=== PATIENT | female | born 1970 | race Caucasian/White ===

== ENCOUNTER 2020-08-04 16:24 | Inpatient (IN) | payer MEDICAID ==
[~2020-08-04] VITALS: Ht 170.2 cm; Wt 100.0 kg
[2020-08-04] MEDS ORDERED: TETanus/Pertussis (Acell)/Diphther VAC/PF (Tdap-Adult) 0.5ml syringe IMVAC ONE (18:55)
[2020-08-04] MEDS ORDERED: piperacillin/tazo 3.375gm/50ml 50 ML IV ONE (18:55)
[2020-08-04] MEDS ORDERED: normal saline 1000ML IV soln IV ONE (18:55)
[2020-08-04] MEDS ORDERED: vancomycin/NS 1 GM ADD-VANTAGE 250 ML IV ONE (18:55)
[2020-08-04] MEDS ORDERED: CLINDAmcin 900mg/NS 50ml IVPB 50 ML IV ONE (18:55)
[2020-08-04] MEDS ORDERED: iohexol 300mg/ml 100ml inj. ONE (19:46)
[2020-08-04 20:07] LABS: BASOPHILS % (AUTO) 0.3 % (0-1); EOSINOPHILS # (AUTO) 0.1 X10'3 (0-0.9); EOSINOPHILS % (AUTO) 1.2 % (0-6); HEMATOCRIT 38.2 % (35.0-45.0); HEMOGLOBIN 12.8 g/dl (12.0-16.0); LYMPHOCYTES # (AUTO) 2.1 X10'3 (1.1-4.8); LYMPHOCYTES % (AUTO) 16.5 % (21-51); MEAN CORPUSCULAR HGB CONC 33.6 g/dL (33.0-36.5); MEAN CORPUSCULAR VOLUME 89.3 FL (78-98); MEAN PLATELET VOLUME 7.9 FL (7.4-10.4); MONOCYTES # (AUTO) 0.8 X10'3 (0-0.9); MONOCYTES % (AUTO) 6.5 % (2-12); NEUTROPHILS # (AUTO) 9.5 X10'3 (1.8-7.7); NEUTROPHILS % (AUTO) 75.5 % (42-75); PLATELET COUNT 361 X10'3 (140-440); RED BLOOD COUNT 4.28 X10'6 (4.20-5.60); RED CELL DISTRIBUTION WIDTH 13.7 % (11.5-14.5); WHITE BLOOD COUNT 12.6 X10'3 (4.5-11.0)
[2020-08-04 20:22] LABS: ALANINE AMINOTRANSFERASE 23 U/L (12-78); ALBUMIN 3.1 G/DL (3.4-5.0); ALBUMIN/GLOBULIN RATIO 0.6 (1.1-1.5); ALKALINE PHOSPHATASE 134 IU/L (46-116); ANION GAP 7 (8-16); ASPARTATE AMINO TRANSFERASE 17 U/L (10-37); BILIRUBIN,TOTAL 0.6 MG/DL (0.1-1.0); BLOOD UREA NITROGEN 14 MG/DL (7-18); BUN/CREATININE RATIO 15.9 (6.6-38.0); CHLORIDE 101 MMOL/L (99-107); CREATININE 0.88 MG/DL (0.40-0.90); GLUCOSE 86 MG/DL (70-104); POTASSIUM 3.8 MMOL/L (3.5-5.1); SODIUM 139 MMOL/L (135-145); TOTAL CARBON DIOXIDE 30.8 MMOL/L (24-32); TOTAL PROTEIN 8.2 G/DL (6.4-8.2); eGFR 68 ML/MIN
[2020-08-04 21:05] LABS: CLARITY,URINE CLEAR (Clear); COLOR,URINE YELLOW (Yellow); GLUCOSE, URINE NEGATIVE (Neg); KETONES,URINE NEGATIVE (Neg); LEUKOCYTE ESTERASE ,URINE NEGATIVE (Neg); NITRITES, URINE NEGATIVE (Neg); OCCULT BLOOD,URINE MODERATE (Neg); PROTEIN,URINE TRACE mg/dl (Neg); UROBILINOGEN,URINE 0.2 E.U/dL (0.2-1.0)
[2020-08-04 21:07] LABS: UA COLLECTION TYPE CLN CATCH MIDSTREAM
[2020-08-04 21:24] LABS: BACTERIA,URINE 1+ /HPF (Neg); WBC,URINE 0-4 /HPF (0-4)
[2020-08-04 21:25] LABS: SQUAMOUS EPITHELIAL CELL,UR MODERATE /LPF (FEW)
[2020-08-04] MEDS ORDERED: NO HOME MEDS (21:58)
[2020-08-04] MEDS ORDERED: magnesium 2GM in 50ml NS 50 ML IV PRN (22:40)
[2020-08-04] MEDS ORDERED: mag hydrox/Alum hydrox/simeth 30ml oral suspension PO PRN (22:40)
[2020-08-04] MEDS ORDERED: HYDROcodone/acetaminophen 5mg/325mg tablet PO PRN (22:40)
[2020-08-04] MEDS ORDERED: magnesium 4gm in 100ml NS 100 ML IV PRN (22:40)
[2020-08-04] MEDS ORDERED: ondansetron/PF 4mg/2ml inj IV PRN (22:40)
[2020-08-04] MEDS ORDERED: potassium Cl 20 mEq SR tablet PO PRN ×2 (22:40)
[2020-08-04] MEDS ORDERED: potassium CL 10mEq/100ml bag 100 ML IV PRN ×2 (22:40)
[2020-08-04] MEDS ORDERED: acetaminophen 325mg tablet PO PRN ×2 (22:40)
[2020-08-04] MEDS: normal saline 1000ml 1,000 ML IV SCH (23:28)
[2020-08-05] MEDS: piperacillin/tazo 3.375gm/50ml 100 ML IV SCH ×3 (00:09→17:16)
[2020-08-05] MEDS: hydrALAZINE 20mg/ml inj. IV PRN (00:14)
[2020-08-05] MEDS: HYDROcodone/acetaminophen 10/325mg tab PO PRN ×6 (01:21→23:01)
--- NOTE | 2020-08-05 05:32 | NUR ---
Pt given juice at her request. She woke up because the pain in her leg was returning and requesting prn norco.
[2020-08-05] MEDS: K and/or MAG REPLACEMENT MC SCH ×2 (08:00→19:48)
[2020-08-05] MEDS: mineral oil/petrolatum, white cream 113gm jar TP SCH (08:00)
[2020-08-05] MEDS: vancomycin/NS 1 GM ADD-VANTAGE 250 ML IV SCH ×2 (08:09→19:51)
[2020-08-05] MEDS: normal saline 1000ml 1,000 ML IV SCH ×2 (08:40→14:10)
[2020-08-05 09:00] VITALS: BP 150/55
[2020-08-05 09:00] LABS: BASOPHILS % (AUTO) 0.5 % (0-1); EOSINOPHILS # (AUTO) 0.1 X10'3 (0-0.9); EOSINOPHILS % (AUTO) 1.5 % (0-6); HEMOGLOBIN 11.9 g/dl (12.0-16.0); MEAN CORPUSCULAR HEMOGLOBIN 30.5 PG (27.0-31.0); MEAN CORPUSCULAR VOLUME 89.7 FL (78-98); MEAN PLATELET VOLUME 7.9 FL (7.4-10.4); MONOCYTES # (AUTO) 0.9 X10'3 (0-0.9); MONOCYTES % (AUTO) 9.5 % (2-12); NEUTROPHILS # (AUTO) 6.6 X10'3 (1.8-7.7); NEUTROPHILS % (AUTO) 67.5 % (42-75); PLATELET COUNT 346 X10'3 (140-440); RED CELL DISTRIBUTION WIDTH 14.1 % (11.5-14.5); WHITE BLOOD COUNT 9.7 X10'3 (4.5-11.0)
[2020-08-05 09:17] LABS: ALANINE AMINOTRANSFERASE 23 U/L (12-78); ALBUMIN 2.7 G/DL (3.4-5.0); ALBUMIN/GLOBULIN RATIO 0.6 (1.1-1.5); ALKALINE PHOSPHATASE 125 IU/L (46-116); ANION GAP 6 (8-16); ASPARTATE AMINO TRANSFERASE 23 U/L (10-37); BILIRUBIN,TOTAL 0.5 MG/DL (0.1-1.0); BLOOD UREA NITROGEN 10 MG/DL (7-18); BUN/CREATININE RATIO 12.3 (6.6-38.0); CALCIUM 8.4 MG/DL (8.5-10.1); CHLORIDE 104 MMOL/L (99-107); CREATININE 0.81 MG/DL (0.40-0.90); GLUCOSE 117 MG/DL (70-104); MAGNESIUM 2.2 MG/DL (1.5-2.4); SODIUM 140 MMOL/L (135-145); TOTAL PROTEIN 7.4 G/DL (6.4-8.2); eGFR 75 ML/MIN
[2020-08-05 09:22] LABS: POTASSIUM 4.4 MMOL/L (3.5-5.1)
[2020-08-05] MEDS: lisinopril 10 MG tablet PO SCH (10:50)
[2020-08-05 18:00] VITALS: BP 123/72
--- NOTE | 2020-08-05 18:21 | NUR ---
Problems reprioritized. Patient report given, questions answered & plan of care reviewed with Emma Renner
[2020-08-05] MEDS: lactobacillus rhamnosus 10,000 MMU CELLS/CAPSULE PO SCH (19:51)
[2020-08-05] MEDS: enoxaparin 40mg/0.4ml syringe SQ SCH (19:52)
[2020-08-05 22:00] VITALS: BP 149/89
[2020-08-05] MEDS: diphenhydrAMINE 50 mg/ml inj IV PRN (22:36)
[2020-08-06] MEDS: piperacillin/tazo 3.375gm/50ml 100 ML IV SCH ×3 (00:12→16:49)
[2020-08-06] MEDS: normal saline 1000ml 1,000 ML IV SCH ×3 (00:19→23:17)
[2020-08-06] MEDS: hydrALAZINE 20mg/ml inj. IV PRN ×2 (05:09→18:17)
[2020-08-06] MEDS: HYDROcodone/acetaminophen 10/325mg tab PO PRN ×4 (05:14→21:45)
[2020-08-06 06:00] VITALS: BP 155/103
--- NOTE | 2020-08-06 06:25 | NUR ---
Patient in room ORTHO 4010. I have received report from Shi and had the opportunity to ask questions and assume patient care.
--- NOTE | 2020-08-06 06:39 | NUR ---
Problems reprioritized. Patient report given, questions answered & plan of care reviewed with JOSE Tian.
[2020-08-06] MEDS ORDERED: VANCOMYCIN LEVEL IV ONE (07:30)
[2020-08-06 07:49] LABS: BASOPHILS % (AUTO) 0.6 % (0-1); EOSINOPHILS # (AUTO) 0.1 X10'3 (0-0.9); EOSINOPHILS % (AUTO) 1.2 % (0-6); HEMATOCRIT 33.9 % (35.0-45.0); HEMOGLOBIN 11.5 g/dl (12.0-16.0); LYMPHOCYTES # (AUTO) 2.2 X10'3 (1.1-4.8); LYMPHOCYTES % (AUTO) 25.4 % (21-51); MEAN CORPUSCULAR HEMOGLOBIN 30.7 PG (27.0-31.0); MEAN CORPUSCULAR HGB CONC 33.8 g/dL (33.0-36.5); MEAN CORPUSCULAR VOLUME 90.9 FL (78-98); MEAN PLATELET VOLUME 7.8 FL (7.4-10.4); MONOCYTES # (AUTO) 0.7 X10'3 (0-0.9); MONOCYTES % (AUTO) 7.9 % (2-12); NEUTROPHILS # (AUTO) 5.6 X10'3 (1.8-7.7); NEUTROPHILS % (AUTO) 64.9 % (42-75); PLATELET COUNT 358 X10'3 (140-440); RED BLOOD COUNT 3.73 X10'6 (4.20-5.60); RED CELL DISTRIBUTION WIDTH 13.9 % (11.5-14.5); WHITE BLOOD COUNT 8.7 X10'3 (4.5-11.0)
[2020-08-06] MEDS: K and/or MAG REPLACEMENT MC SCH ×2 (08:00→19:33)
[2020-08-06 08:03] LABS: ALANINE AMINOTRANSFERASE 27 U/L (12-78); ALBUMIN 2.5 G/DL (3.4-5.0); ALBUMIN/GLOBULIN RATIO 0.5 (1.1-1.5); ALKALINE PHOSPHATASE 147 IU/L (46-116); ANION GAP 9 (8-16); ASPARTATE AMINO TRANSFERASE 22 U/L (10-37); BILIRUBIN,TOTAL 0.4 MG/DL (0.1-1.0); BLOOD UREA NITROGEN 12 MG/DL (7-18); BUN/CREATININE RATIO 14.3 (6.6-38.0); CALCIUM 8.1 MG/DL (8.5-10.1); CHLORIDE 107 MMOL/L (99-107); CREATININE 0.84 MG/DL (0.40-0.90); GLUCOSE 96 MG/DL (70-104); MAGNESIUM 2.2 MG/DL (1.5-2.4); POTASSIUM 4.1 MMOL/L (3.5-5.1); SODIUM 140 MMOL/L (135-145); TOTAL CARBON DIOXIDE 24.5 MMOL/L (24-32); TOTAL PROTEIN 7.3 G/DL (6.4-8.2); VANCOMYCIN,TROUGH 10.5 UG/ML (6.0-14.0); eGFR 71 ML/MIN
[2020-08-06] MEDS: lactobacillus rhamnosus 10,000 MMU CELLS/CAPSULE PO SCH ×2 (09:26→19:20)
[2020-08-06] MEDS: lisinopril 10 MG tablet PO SCH (09:30)
[2020-08-06] MEDS: vancomycin/NS 1 GM ADD-VANTAGE 250 ML IV SCH (09:31)
[2020-08-06 10:00] VITALS: BP 156/93
[2020-08-06] MEDS: mineral oil/petrolatum, white cream 113gm jar TP SCH (11:24)
[2020-08-06 18:00] VITALS: BP 182/107
--- NOTE | 2020-08-06 18:21 | NUR ---
Problems reprioritized. Patient report given, questions answered & plan of care reviewed with Emma Renner
[2020-08-06] MEDS: enoxaparin 40mg/0.4ml syringe SQ SCH (19:20)
[2020-08-06] MEDS: VANCOmycin 1250MG/NS 250ml Bag 250 ML IV SCH (19:20)
[2020-08-06] MEDS: magnesium hydroxide 30ml (MOM) UD suspension PO PRN (19:32)
[2020-08-06] MEDS ORDERED: pneumococcal 23-VAL P-sac vacc 25 mcg/0.5ml vial IMVAC ONE (20:15)
[2020-08-06] MEDS ORDERED: FLU VACC QS2020-21(6MOS UP)/PF 60 MCG/0.5 ML SYRINGE IMVAC ONE (20:15)
[2020-08-06] MEDS ORDERED: amLODIPine 5mg tablet PO SCH (21:35)
--- NOTE | 2020-08-06 21:58 | NUR ---
PAGER ID: [phone] MESSAGE: adri on neuro [id number], re: 4010A BP 177/102 after 10mg of hydralazine 2 hours ago. It is ordered for Q6 PRN. please advise. New order for Amlodipine 10mg
[2020-08-06 22:00] VITALS: BP 177/102
[2020-08-06] MEDS ORDERED: cloNIDine 0.1 mg tablet PO ONE (22:55)
--- NOTE | 2020-08-06 22:59 | NUR ---
PAGER ID: [phone] MESSAGE: adri neuro [phone] BP still elevated after Amlodipine. R arm 197/103, L arm 180/79 Hydalazine was given at 1817, Norvasc given at 2145 any advice? 1 time dose of clonidine ordered.
[2020-08-06 23:00] VITALS: BP 197/103
[2020-08-06 23:01] VITALS: BP 180/79
[2020-08-07] MEDS: piperacillin/tazo 3.375gm/50ml 100 ML IV SCH ×3 (00:02→16:34)
[2020-08-07] MEDS: HYDROcodone/acetaminophen 10/325mg tab PO PRN ×4 (02:45→19:26)
[2020-08-07 06:00] VITALS: BP 135/87
[2020-08-07 06:34] LABS: ALANINE AMINOTRANSFERASE 19 U/L (12-78); ALBUMIN 2.2 G/DL (3.4-5.0); ALBUMIN/GLOBULIN RATIO 0.5 (1.1-1.5); ALKALINE PHOSPHATASE 121 IU/L (46-116); ANION GAP 6 (8-16); ASPARTATE AMINO TRANSFERASE 14 U/L (10-37); BASOPHILS # (AUTO) 0.1 X10'3 (0-0.2); BASOPHILS % (AUTO) 0.9 % (0-1); BILIRUBIN,TOTAL 0.3 MG/DL (0.1-1.0); BLOOD UREA NITROGEN 10 MG/DL (7-18); BUN/CREATININE RATIO 12.2 (6.6-38.0); CALCIUM 8.4 MG/DL (8.5-10.1); CHLORIDE 109 MMOL/L (99-107); CREATININE 0.82 MG/DL (0.40-0.90); EOSINOPHILS # (AUTO) 0.1 X10'3 (0-0.9); EOSINOPHILS % (AUTO) 1.5 % (0-6); GLUCOSE 122 MG/DL (70-104); HEMATOCRIT 31.6 % (35.0-45.0); HEMOGLOBIN 10.5 g/dl (12.0-16.0); LYMPHOCYTES % (AUTO) 27.6 % (21-51); MAGNESIUM 2.5 MG/DL (1.5-2.4); MEAN CORPUSCULAR HEMOGLOBIN 30.1 PG (27.0-31.0); MEAN CORPUSCULAR HGB CONC 33.2 g/dL (33.0-36.5); MEAN CORPUSCULAR VOLUME 90.5 FL (78-98); MEAN PLATELET VOLUME 7.7 FL (7.4-10.4); MONOCYTES # (AUTO) 0.6 X10'3 (0-0.9); MONOCYTES % (AUTO) 8.8 % (2-12); NEUTROPHILS # (AUTO) 4.4 X10'3 (1.8-7.7); NEUTROPHILS % (AUTO) 61.2 % (42-75); PLATELET COUNT 345 X10'3 (140-440); RED BLOOD COUNT 3.49 X10'6 (4.20-5.60); RED CELL DISTRIBUTION WIDTH 13.8 % (11.5-14.5); SODIUM 142 MMOL/L (135-145); TOTAL CARBON DIOXIDE 26.8 MMOL/L (24-32); TOTAL PROTEIN 6.7 G/DL (6.4-8.2); WHITE BLOOD COUNT 7.1 X10'3 (4.5-11.0); eGFR 73 ML/MIN
--- NOTE | 2020-08-07 06:54 | NUR ---
Problems reprioritized. Patient report given, questions answered & plan of care reviewed with JOSE Mansfield.
--- NOTE | 2020-08-07 06:55 | NUR ---
Patient in room ORTHO 4010. I have received report from Emma Archibald RN and had the opportunity to ask questions and assume patient care.
[2020-08-07] MEDS: K and/or MAG REPLACEMENT MC SCH ×2 (08:00→20:00)
[2020-08-07] MEDS: lactobacillus rhamnosus 10,000 MMU CELLS/CAPSULE PO SCH ×2 (08:30→20:00)
[2020-08-07] MEDS: lisinopril 10 MG tablet PO SCH (08:30)
[2020-08-07] MEDS: VANCOmycin 1250MG/NS 250ml Bag 250 ML IV SCH ×2 (08:31→20:00)
[2020-08-07] MEDS: normal saline 1000ml 1,000 ML IV SCH ×2 (08:37→19:34)
[2020-08-07] MEDS: mineral oil/petrolatum, white cream 113gm jar TP SCH (08:39)
[2020-08-07 11:00] VITALS: BP 154/85
[2020-08-07] MEDS: magnesium hydroxide 30ml (MOM) UD suspension PO PRN (12:37)
[2020-08-07 18:00] VITALS: BP 161/78
--- NOTE | 2020-08-07 18:00 | NUR ---
Patient in room ORTHO 4010. I have received report from Shyla GARCIA and had the opportunity to ask questions and assume patient care.
--- NOTE | 2020-08-07 18:20 | NUR ---
Problems reprioritized. Patient report given, questions answered & plan of care reviewed with JOSE Sharpe.
[2020-08-07] MEDS: diphenhydrAMINE 50 mg/ml inj IV PRN (19:34)
[2020-08-07] MEDS: enoxaparin 40mg/0.4ml syringe SQ SCH (20:00)
[2020-08-07 22:00] VITALS: BP 168/80
[2020-08-08] MEDS: piperacillin/tazo 3.375gm/50ml 100 ML IV SCH ×2 (00:40→07:16)
[2020-08-08] MEDS: HYDROcodone/acetaminophen 10/325mg tab PO PRN ×4 (00:40→20:35)
[2020-08-08 06:00] VITALS: BP 228/122
--- NOTE | 2020-08-08 06:00 | NUR ---
Patient in room ORTHO 4010. I have received report from Jennifer and had the opportunity to ask questions and assume patient care.
--- NOTE | 2020-08-08 06:33 | NUR ---
Problems reprioritized. Patient report given, questions answered & plan of care reviewed with Jennifer GARCIA.
[2020-08-08] MEDS: normal saline 1000ml 1,000 ML IV SCH (07:16)
[2020-08-08] MEDS: lactobacillus rhamnosus 10,000 MMU CELLS/CAPSULE PO SCH ×2 (07:16→20:30)
[2020-08-08] MEDS: lisinopril 10 MG tablet PO SCH (07:17)
[2020-08-08] MEDS: hydrALAZINE 20mg/ml inj. IV PRN (07:19)
[2020-08-08] MEDS ORDERED: VANCOMYCIN LEVEL IV ONE (07:30)
[2020-08-08 07:49] LABS: HEMOGLOBIN 10.5 g/dl (12.0-16.0)
[2020-08-08 07:51] LABS: BASOPHILS % (AUTO) 0.4 % (0-1); EOSINOPHILS # (AUTO) 0.1 X10'3 (0-0.9); EOSINOPHILS % (AUTO) 1.1 % (0-6); HEMATOCRIT 30.3 % (35.0-45.0); LYMPHOCYTES # (AUTO) 1.9 X10'3 (1.1-4.8); MEAN CORPUSCULAR HEMOGLOBIN 31.4 PG (27.0-31.0); MEAN CORPUSCULAR HGB CONC 34.7 g/dL (33.0-36.5); MEAN CORPUSCULAR VOLUME 90.4 FL (78-98); MEAN PLATELET VOLUME 7.7 FL (7.4-10.4); MONOCYTES # (AUTO) 0.6 X10'3 (0-0.9); NEUTROPHILS # (AUTO) 5.8 X10'3 (1.8-7.7); NEUTROPHILS % (AUTO) 68.5 % (42-75); PLATELET COUNT 335 X10'3 (140-440); RED BLOOD COUNT 3.35 X10'6 (4.20-5.60); RED CELL DISTRIBUTION WIDTH 13.5 % (11.5-14.5); WHITE BLOOD COUNT 8.4 X10'3 (4.5-11.0)
[2020-08-08 07:52] LABS: ALANINE AMINOTRANSFERASE 19 U/L (12-78); ALBUMIN 2.3 G/DL (3.4-5.0); ALBUMIN/GLOBULIN RATIO 0.5 (1.1-1.5); ALKALINE PHOSPHATASE 119 IU/L (46-116); ANION GAP 8 (8-16); ASPARTATE AMINO TRANSFERASE 15 U/L (10-37); BILIRUBIN,TOTAL 0.4 MG/DL (0.1-1.0); BLOOD UREA NITROGEN 8 MG/DL (7-18); CHLORIDE 109 MMOL/L (99-107); GLUCOSE 97 MG/DL (70-104); SODIUM 143 MMOL/L (135-145); TOTAL CARBON DIOXIDE 26.1 MMOL/L (24-32); TOTAL PROTEIN 6.9 G/DL (6.4-8.2); eGFR 76 ML/MIN
[2020-08-08 07:54] LABS: MAGNESIUM 2.3 MG/DL (1.5-2.4); VANCOMYCIN,TROUGH 16.4 UG/ML (6.0-14.0)
[2020-08-08 08:00] VITALS: BP 175/90
[2020-08-08] MEDS: K and/or MAG REPLACEMENT MC SCH ×2 (08:00→20:00)
[2020-08-08] MEDS: cloNIDine 0.1 mg tablet PO SCH ×3 (08:28→20:35)
[2020-08-08] MEDS: mineral oil/petrolatum, white cream 113gm jar TP SCH (08:28)
[2020-08-08 09:19] VITALS: BP 165/79
[2020-08-08 10:00] VITALS: BP 124/70
[2020-08-08] MEDS: VANCOmycin 1250MG/NS 250ml Bag 250 ML IV SCH (10:06)
--- NOTE | 2020-08-08 12:07 | NUR ---
Problems reprioritized. Patient report given, questions answered & plan of care reviewed with Jennifer.
--- NOTE | 2020-08-08 12:10 | NUR ---
Student documentation:I have reviewed and agree with all interventions, assessments performed and documented by Danae Liao.
[2020-08-08] MEDS: ceFAZolin 1GM/D5W- ADD-VANTAGE 50 ML IV SCH ×2 (14:09→20:30)
--- NOTE | 2020-08-08 18:23 | NUR ---
Problems reprioritized. Patient report given, questions answered & plan of care reviewed with JOSE Carter.
[2020-08-08] MEDS: enoxaparin 40mg/0.4ml syringe SQ SCH (20:31)
[2020-08-09] MEDS: HYDROcodone/acetaminophen 10/325mg tab PO PRN ×3 (01:58→13:29)
[2020-08-09] MEDS: diphenhydrAMINE 50 mg/ml inj IV PRN (01:58)
[2020-08-09] MEDS: ceFAZolin 1GM/D5W- ADD-VANTAGE 50 ML IV SCH ×3 (02:03→15:51)
[2020-08-09 06:00] VITALS: BP 147/81
--- NOTE | 2020-08-09 06:28 | NUR ---
Patient in room ORTHO 4010. I have received report from Alison and had the opportunity to ask questions and assume patient care.
[2020-08-09 06:43] LABS: BASOPHILS # (AUTO) 0.1 X10'3 (0-0.2); EOSINOPHILS # (AUTO) 0.1 X10'3 (0-0.9); EOSINOPHILS % (AUTO) 1.6 % (0-6); HEMATOCRIT 30.3 % (35.0-45.0); HEMOGLOBIN 10.2 g/dl (12.0-16.0); LYMPHOCYTES # (AUTO) 2.4 X10'3 (1.1-4.8); LYMPHOCYTES % (AUTO) 32.1 % (21-51); MEAN CORPUSCULAR HEMOGLOBIN 30.3 PG (27.0-31.0); MEAN CORPUSCULAR HGB CONC 33.6 g/dL (33.0-36.5); MEAN CORPUSCULAR VOLUME 90.2 FL (78-98); MEAN PLATELET VOLUME 7.5 FL (7.4-10.4); MONOCYTES # (AUTO) 0.6 X10'3 (0-0.9); MONOCYTES % (AUTO) 7.9 % (2-12); NEUTROPHILS # (AUTO) 4.2 X10'3 (1.8-7.7); NEUTROPHILS % (AUTO) 57.4 % (42-75); PLATELET COUNT 316 X10'3 (140-440); RED BLOOD COUNT 3.36 X10'6 (4.20-5.60); RED CELL DISTRIBUTION WIDTH 13.9 % (11.5-14.5); WHITE BLOOD COUNT 7.4 X10'3 (4.5-11.0)
[2020-08-09 06:59] LABS: ALANINE AMINOTRANSFERASE 17 U/L (12-78); ALBUMIN 2.3 G/DL (3.4-5.0); ALBUMIN/GLOBULIN RATIO 0.5 (1.1-1.5); ALKALINE PHOSPHATASE 105 IU/L (46-116); ANION GAP 10 (8-16); ASPARTATE AMINO TRANSFERASE 13 U/L (10-37); BILIRUBIN,TOTAL 0.3 MG/DL (0.1-1.0); BLOOD UREA NITROGEN 12 MG/DL (7-18); BUN/CREATININE RATIO 12.4 (6.6-38.0); CALCIUM 8.5 MG/DL (8.5-10.1); CHLORIDE 110 MMOL/L (99-107); CREATININE 0.97 MG/DL (0.40-0.90); GLUCOSE 111 MG/DL (70-104); MAGNESIUM 2.5 MG/DL (1.5-2.4); POTASSIUM 4.5 MMOL/L (3.5-5.1); SODIUM 145 MMOL/L (135-145); TOTAL CARBON DIOXIDE 25.5 MMOL/L (24-32); TOTAL PROTEIN 6.9 G/DL (6.4-8.2); eGFR 61 ML/MIN
[2020-08-09] MEDS: cloNIDine 0.1 mg tablet PO SCH ×2 (07:48→13:30)
[2020-08-09] MEDS: lactobacillus rhamnosus 10,000 MMU CELLS/CAPSULE PO SCH (07:48)
[2020-08-09] MEDS: lisinopril 10 MG tablet PO SCH (07:54)
[2020-08-09] MEDS: K and/or MAG REPLACEMENT MC SCH (08:00)
[2020-08-09 10:00] VITALS: BP 108/86
--- NOTE | 2020-08-09 15:59 | NUR ---
Initial: Pt admit DX RLE cellulitis w/ blisters hx meth use FLOOR ASSEMBLER. PO 75 avg meals meeting needs. LBM 08/08. RD recommends ensure high protein TIDWM; DO notified. Pending possible debridement per DO note. Will continue to monitor. Rec: 1. continue regular diet 2. ensure high protein TIDWM 3. bowel care per rx 4. wts per rx Addendum: 08/09/20 at [address] Amended: Links added.
[2020-08-09 18:00] VITALS: BP 160/83
--- NOTE | 2020-08-09 21:10 | NUR ---
Entered patient's room to administer HS medications and address possible DSG change to RLE. At this time stated she did not want the nursing resident in her room as she expressed she felt he was not providing her with the care she wanted. I tried to reassure the patient that he did not have to be involved in her care for the remainder of the shift it was at this time the patient stated that she wanted to leave AMA. It was explained to the patient that she would not get her antibiotic therapy and that she would need to follow up with her primary care doctor after she left or if her symptoms got worse she could return to the ER. I informed her that I would need to let the MD on duty of her wishes to leave AMA.
--- NOTE | 2020-08-09 21:20 | NUR ---
Received Call from MD Blackwood about AMA and he stated that if the patient has been advised of her rights the to remove IV and let the patient leave at this time.
--- NOTE | 2020-08-09 21:40 | NUR ---
Removed patient IV from right hand with canula intact. Complete dressing change to RLE as dressing was saturated with drainage. Pt signed AMA paper. Gathered all of patient's belongings including cell phone and media buyer. Pt changed in to her own clothing and had her FWW at time of discharge. Security present to escort patient out.
== END 2020-08-09 21:30 | disposition left against medical advice (07) | DRG 383 ==
LOC: ER 16:25 → ED HOLD 22:36 → ORTHO 4S 08-05 09:50
PROVIDERS: ADMIT Family Medicine; ATTEND Internal Medicine
PROC: 3E02340 Introduction of Influenza Vaccine into Muscle, Percutaneous Approach (ICD-10-PCS; principal; 2020-08-06)
PROC: 3E0234Z Introduction of Serum, Toxoid and Vaccine into Muscle, Percutaneous Approach (ICD-10-PCS; 2020-08-06)
DX: L03.115 Cellulitis of right lower limb (principal); B95.0 Streptococcus, group A, as the cause of diseases classified elsewhere; I10 Essential (primary) hypertension; J45.909 Unspecified asthma, uncomplicated; Z53.29 Procedure and treatment not carried out because of patient's decision for other reasons; F17.210 Nicotine dependence, cigarettes, uncomplicated; L03.116 Cellulitis of left lower limb; Z90.49 Acquired absence of other specified parts of digestive tract; Z88.6 Allergy status to analgesic agent; Z82.49 Family history of ischemic heart disease and other diseases of the circulatory system; Z82.3 Family history of stroke; Z23 Encounter for immunization
CPT/HCPCS: 36415; 71045; 73701; 76937; 80053; 80202; 81001; 83605; 83735; 84145; 85025; 87040; 87070; 87077; 87081; 87186; 90715; 90732; 93005; 93922; 93926; 97116; 97161; 97530; 99285; G0378; J0360; J0690; J1200; J1650; J2543; J3370; J3490; J7030; Q9967

== ENCOUNTER 2023-06-06 20:23 | Inpatient (IN) | payer MEDICAID ==
[~2023-06-06] VITALS: Ht 162.6 cm; Wt 110.5 kg
[~2023-06-06 20:23] MED LIST: AMO250C PO; GABA300C PO; LISI20TA28 PO; LOP12.5T PO
--- NOTE | 2023-06-07 01:39 | NUR ---
Note undone in EDM - 06/07/23 at 0202 by EFREM PT BROUGHT BACK TO ROOM 13 BY MALTER OPERATOR. SLOW STEADY GAIT NOTED. PT ENDORSED RLE SWELLING S/P 08/12 W/EXCERATION OS S/S X3 DAYS. PT ENDORSED INJURY TO RLE S/P WASP BITE. AT BEDSIDE AWARE BP 20/116. ENDORSED SHE TOOK ALL OF HER ROUTINE ANTI HTN MEDS TODAY. PAIN AT PRESENT TIME 07/30 ENDORSES HAS NOT TAKEN HER PAIN MEDICATION X2 DAYS " THE NORCO DOESN'T REALLY WORK"
[2023-06-07] MEDS ORDERED: vancomycin/NS 1 GM ADD-VANTAGE 250 ML IV ONE (01:50)
[2023-06-07] MEDS ORDERED: piperacillin/tazo 3.375gm/50ml 50 ML IV ONE (01:50)
--- NOTE | 2023-06-07 02:02 | NUR ---
PT BROUGHT BACK TO ROOM 13 BY WRAPPER CASHIER. SLOW STEADY GAIT NOTED. PT ENDORSED RLE SWELLING S/P LATE 2021 W/EXCERATION OS S/S X3 DAYS. PT ENDORSED INJURY TO RLE S/P WASP BITE. MD AT BEDSIDE AWARE BP 20/116. ENDORSED SHE TOOK ALL OF HER ROUTINE ANTI HTN MEDS TODAY. PAIN AT PRESENT TIME 07/30 ENDORSES HAS NOT TAKEN HER PAIN MEDICATION X2 DAYS " THE NORCO DOESN'T REALLY WORK"
--- NOTE | 2023-06-07 02:25 | NUR ---
BC X2 DRAWN IV ABX TX STARTED VIA 22G LAC. PCXR IN PROGRESS
[2023-06-07 02:36] LABS: BASOPHILS % (AUTO) 0.5 % (0-1); EOSINOPHILS # (AUTO) 0.2 X10'3 (0-0.9); EOSINOPHILS % (AUTO) 3.6 % (0-6); HEMATOCRIT 40.2 % (35.0-45.0); HEMOGLOBIN 13.5 g/dl (12.0-16.0); LYMPHOCYTES # (AUTO) 2.4 X10'3 (1.1-4.8); LYMPHOCYTES % (AUTO) 40.6 % (21-51); MEAN CORPUSCULAR HEMOGLOBIN 30.9 PG (27.0-31.0); MEAN CORPUSCULAR HGB CONC 33.6 g/dL (33.0-36.5); MEAN CORPUSCULAR VOLUME 91.8 FL (78-98); MEAN PLATELET VOLUME 8.9 FL (7.4-10.4); MONOCYTES # (AUTO) 0.4 X10'3 (0-0.9); MONOCYTES % (AUTO) 6.7 % (2-12); NEUTROPHILS # (AUTO) 2.9 X10'3 (1.8-7.7); NEUTROPHILS % (AUTO) 48.6 % (42-75); PLATELET COUNT 218 X10'3 (140-440); RED BLOOD COUNT 4.37 X10'6 (4.20-5.60); RED CELL DISTRIBUTION WIDTH 14.5 % (11.5-14.5)
[2023-06-07 02:51] LABS: ALANINE AMINOTRANSFERASE 36 U/L (12-78); ALBUMIN 3.7 G/DL (3.4-5.0); ALBUMIN/GLOBULIN RATIO 0.9 (1.1-1.5); ALKALINE PHOSPHATASE 109 IU/L (46-116); ANION GAP 6 (8-16); ASPARTATE AMINO TRANSFERASE 27 U/L (10-37); BILIRUBIN,TOTAL 0.2 MG/DL (0.1-1.0); BLOOD UREA NITROGEN 15 MG/DL (7-18); BUN/CREATININE RATIO 15.3 (10.0-20.0); CALCIUM 9.3 MG/DL (8.5-10.1); CHLORIDE 107 MMOL/L (99-107); CREATININE 0.98 MG/DL (0.40-0.90); GLUCOSE 96 MG/DL (70-104); SODIUM 141 MMOL/L (135-145); TOTAL CARBON DIOXIDE 28.2 MMOL/L (24-32); TOTAL PROTEIN 7.6 G/DL (6.4-8.2); eCRCL 57 ML/MIN; eGFR 59 ML/MIN
[2023-06-07 02:59] LABS: MAGNESIUM 2.3 MG/DL (1.5-2.4); PRO BRAIN NATRIURETIC PEPTIDE 189 PG/ML (0-125)
[2023-06-07] MEDS ORDERED: fentaNYL/PF 50MCG/1 ML 2ML syringe IV ONE (03:05)
[2023-06-07] MEDS ORDERED: LORazepam 2 mg/ml vial IV ONE ×3 (03:05→04:15)
[2023-06-07] MEDS ORDERED: ondansetron/PF 4mg/2ml inj IV ONE (03:05)
[2023-06-07] MEDS ORDERED: iohexol 300mg/ml 100ml inj. ONE (03:22)
--- NOTE | 2023-06-07 04:02 | NUR ---
pt returned from ct via gurney iv vanco started via 20g piv rac.
[2023-06-07] MEDS ORDERED: proCHLORperazine 10 MG/2 ml inj IV ONE (04:10)
--- NOTE | 2023-06-07 04:40 | NUR ---
APPROX 10MIN AFTER INITIATING VANCO INFUSION PT VERBALIZED "i CAN'T BREATH! I'M GOING TO VOMIT" BEGAN TO CRY BECOMING VERY RESTLESS. VANCO STOPPED LUNGS ASSESSED NO CHANGE NOTED FROM INITIAL ASSESSMENT, NOTIFIED RA SATS 94%. O2 APPLIED AT 2 L VIA NC ATIVAN 0.5MG VO TO INCREASE TO TOTAL 1MG IV/COMPAZINE 10MG IV ADMIN. THERAPUETIC COMMUNICATION IMPLEMENTED WITH GOOD RESULTS ALONG WITH MEDICATION. PT RESTING QUIETLY AT PRESENT TIME PROJECT LEAD LEADS ON AND FUNCTIONING.
[2023-06-07] MEDS ORDERED: magnesium 2GM in 50ml NS 50 ML IV PRN (05:35)
[2023-06-07] MEDS ORDERED: magnesium 4gm in 100ml NS 100 ML IV PRN (05:35)
[2023-06-07] MEDS ORDERED: acetaminophen 325mg tablet PO PRN (05:35)
[2023-06-07] MEDS ORDERED: magnesium Cl slow-release 64mg tablet PO PRN (05:35)
[2023-06-07] MEDS ORDERED: mag hydrox/Alum hydrox/simeth 30ml oral suspension PO PRN (05:35)
[2023-06-07] MEDS ORDERED: potassium Cl 20 mEq SR tablet PO PRN ×2 (05:35)
[2023-06-07] MEDS ORDERED: magnesium hydroxide 30ml (MOM) UD suspension PO PRN (05:35)
[2023-06-07] MEDS ORDERED: potassium Cl 40MEQ/1/2NS 520ml 520 ML IV PRN (05:35)
[2023-06-07] MEDS ORDERED: ondansetron/PF 4mg/2ml inj IV PRN (05:35)
[2023-06-07] MEDS ORDERED: HYDROcodone/acetaminophen 5mg/325mg tablet PO PRN (05:35)
[2023-06-07] MEDS: K and/or MAG REPLACEMENT MC SCH ×2 (07:47→19:17)
[2023-06-07] MEDS: docusate sod 100mg capsule PO SCH ×2 (08:26→19:55)
[2023-06-07] MEDS: enoxaparin 40mg/0.4ml syringe SUBCUT SCH (08:28)
[2023-06-07] MEDS ORDERED: METO-411 PO (10:18)
[2023-06-07] MEDS ORDERED: TRAZ-256 PO (10:18)
[2023-06-07] MEDS ORDERED: GABA-535 PO (10:18)
[2023-06-07] MEDS ORDERED: DULO20CA18 PO (10:18)
[2023-06-07] MEDS ORDERED: HYDR-3965 PO (10:18)
[2023-06-07] MEDS: lisinopril 20mg tablet PO SCH (10:36)
[2023-06-07] MEDS: metoprolol tartrate 25mg tablet PO SCH (10:37)
[2023-06-07] MEDS: piperacillin/tazo 3.375gm/50ml 50 ML IV SCH ×2 (10:42→19:08)
--- NOTE | 2023-06-07 12:19 | NUR ---
REPORT GIVENT TO WALI GARCIA ASSUMING CARE DURING LUNCH BREAK
--- NOTE | 2023-06-07 12:57 | NUR ---
RECEIVED REPORT FROM WALI GARCIA ASSUMING CARE OF PT
[2023-06-07] MEDS ORDERED: vancomycin/NS 1 GM ADD-VANTAGE 250 ML IV SCH (14:00)
--- NOTE | 2023-06-07 16:22 | NUR ---
PRESSURE ULCER EDUCATION: DEFINITION: A pressure ulcer is an area of skin that breaks down when you stay in one position too long. The constant pressure against the skin reduces the blood flow to that area and the affected tissue dies. CAUSES: "Being bedridden or in a wheelchair "Fragile skin "Having a chronic condition, such as diabetes or vascular disease "Inability to move certain parts of your body without assistance "Older age "Incontinence of urine or stool SYMPTOMS: "A reddened area that DOES NOT turn white when pressed on - this can be the beginning of a pressure ulcer "A blister, deep sore or a crater - these can be advanced pressure ulcers FIRST AID: "Relieve the pressure on this area "Keep the area clean and dry "Call your primary doctor if you see any of the above symptoms "DO NOT massage the area "DO NOT use a donut shaped or ring shaped pillow- these actually interfere with the blood flow and cause complications PREVENTION: "Check for pressure ulcers everyday "Change position at least every two hours to relieve pressure "Use items that help relieve pressure- pillows, sheepskin, foam padding, and powders. "Keep skin clean and dry "Eat healthy well balanced meals "Exercise daily IF YOU SEE ANY OF THESE SYMPTOMS WHILE IN THE HOSPITAL - TELL YOUR NURSE IMMEDIATELY. IF YOU SEE ANY OF THESE SYMPTOMS WHILE AT HOME OR HAVE ANY QUESTIONS OR CONCERNS ABOUT PRESSURE ULCERS - CALL YOUR PRIMARY DOCTOR IMMEDIATELY. Addendum: 06/07/23 at 1622 by Marysol Kiser RN Amended: Links added.
--- NOTE | 2023-06-07 16:45 | NUR ---
Received report from ED RNEse
[2023-06-07] MEDS: vancomycin/NS 1 GM ADD-VANTAGE 250 ML IV SCH (16:56)
[2023-06-07] MEDS: HYDROcodone/acetaminophen 10/325mg tab PO PRN ×2 (17:29→22:26)
[2023-06-07 17:30] VITALS: RESP 16; O2SAT 98
[2023-06-07 18:00] VITALS: BP 146/69; PULSE 76; RESP 16; TEMP 98.2; O2SAT 96
--- NOTE | 2023-06-07 18:10 | NUR ---
Patient in room ORTHO 4012. I have received report from Shyla GARCIA and had the opportunity to ask questions and assume patient care.
--- NOTE | 2023-06-07 18:30 | NUR ---
Problems reprioritized. Patient report given, questions answered & plan of care reviewed with JOSE Gregg.
[2023-06-07 20:00] VITALS: RESP 16; O2SAT 96
[2023-06-07 22:00] VITALS: BP 146/80; PULSE 69; RESP 16; TEMP 98.4; O2SAT 92
[2023-06-08 01:56] LABS: BILIRUBIN,URINE NEGATIVE (Neg); CLARITY,URINE SLIGHTLY CLOUDY (Clear); COLOR,URINE YELLOW (Yellow); GLUCOSE, URINE NEGATIVE (Neg); KETONES,URINE NEGATIVE (Neg); LEUKOCYTE ESTERASE ,URINE NEGATIVE (Neg); NITRITES, URINE NEGATIVE (Neg); OCCULT BLOOD,URINE TRACE-INTACT (Neg); PH,URINE 7.5 (4.8-8.0); PROTEIN,URINE TRACE mg/dl (Neg); UROBILINOGEN,URINE 0.2 E.U/dL (0.2-1.0)
[2023-06-08 02:12] LABS: UA COLLECTION TYPE CLN CATCH MIDSTREAM
[2023-06-08 02:16] LABS: BACTERIA,URINE FEW /HPF (Neg); RBC,URINE 0-2 /HPF (0-2); SQUAMOUS EPITHELIAL CELL,UR MODERATE /LPF (FEW); WBC,URINE 0-4 /HPF (0-4)
[2023-06-08] MEDS: HYDROcodone/acetaminophen 10/325mg tab PO PRN ×4 (02:39→19:39)
[2023-06-08] MEDS: piperacillin/tazo 3.375gm/50ml 50 ML IV SCH ×3 (02:46→17:46)
[2023-06-08 06:00] VITALS: BP 149/74; PULSE 65; RESP 16; TEMP 97.8; O2SAT 97
[2023-06-08 06:33] LABS: BASOPHILS % (AUTO) 0.4 % (0-1); EOSINOPHILS # (AUTO) 0.2 X10'3 (0-0.9); EOSINOPHILS % (AUTO) 3.6 % (0-6); HEMATOCRIT 36.5 % (35.0-45.0); HEMOGLOBIN 12.2 g/dl (12.0-16.0); LYMPHOCYTES # (AUTO) 1.1 X10'3 (1.1-4.8); LYMPHOCYTES % (AUTO) 19.7 % (21-51); MEAN CORPUSCULAR HEMOGLOBIN 30.9 PG (27.0-31.0); MEAN CORPUSCULAR HGB CONC 33.5 g/dL (33.0-36.5); MEAN CORPUSCULAR VOLUME 92.1 FL (78-98); MEAN PLATELET VOLUME 9.2 FL (7.4-10.4); MONOCYTES # (AUTO) 0.4 X10'3 (0-0.9); MONOCYTES % (AUTO) 6.5 % (2-12); NEUTROPHILS % (AUTO) 69.8 % (42-75); PLATELET COUNT 180 X10'3 (140-440); RED BLOOD COUNT 3.96 X10'6 (4.20-5.60); RED CELL DISTRIBUTION WIDTH 14.4 % (11.5-14.5); WHITE BLOOD COUNT 5.8 X10'3 (4.5-11.0)
[2023-06-08] MEDS: vancomycin/NS 1 GM ADD-VANTAGE 250 ML IV SCH ×2 (06:42→15:46)
[2023-06-08 06:46] LABS: ALANINE AMINOTRANSFERASE 46 U/L (12-78); ALBUMIN 3.2 G/DL (3.4-5.0); ALBUMIN/GLOBULIN RATIO 0.9 (1.1-1.5); ALKALINE PHOSPHATASE 89 IU/L (46-116); ANION GAP 8 (8-16); ASPARTATE AMINO TRANSFERASE 41 U/L (10-37); BILIRUBIN,TOTAL 0.8 MG/DL (0.1-1.0); BLOOD UREA NITROGEN 15 MG/DL (7-18); CALCIUM 8.5 MG/DL (8.5-10.1); CHLORIDE 104 MMOL/L (99-107); CREATININE 0.94 MG/DL (0.40-0.90); GLUCOSE 111 MG/DL (70-104); POTASSIUM 3.6 MMOL/L (3.5-5.1); SODIUM 141 MMOL/L (135-145); TOTAL CARBON DIOXIDE 28.6 MMOL/L (24-32); TOTAL PROTEIN 6.7 G/DL (6.4-8.2); eCRCL 59 ML/MIN; eGFR 62 ML/MIN
[2023-06-08] MEDS: K and/or MAG REPLACEMENT MC SCH ×2 (08:00→19:35)
[2023-06-08 08:35] VITALS: RESP 16; O2SAT 97
[2023-06-08] MEDS: docusate sod 100mg capsule PO SCH ×2 (08:35→20:58)
[2023-06-08] MEDS: duloxetine 20mg capsule.DR PO SCH (08:35)
[2023-06-08] MEDS: gabapentin 400mg capsule PO SCH ×3 (08:40→20:58)
[2023-06-08] MEDS: metoprolol tartrate 25mg tablet PO SCH (08:40)
[2023-06-08] MEDS: enoxaparin 40mg/0.4ml syringe SUBCUT SCH (08:40)
[2023-06-08] MEDS: lisinopril 20mg tablet PO SCH (08:40)
[2023-06-08 10:00] VITALS: BP 156/97; PULSE 67; RESP 18; TEMP 98.8; O2SAT 99
--- NOTE | 2023-06-08 11:20 | NUR ---
Late admin of ABX. 10:00 dose hung late as it wasn't available from pharmacy. Pharmacy delivered to 18:00 dose and the 02:00 dose. Called again to request the 10:00 dose.
[2023-06-08] MEDS: nystatin 15 GM powder TP SCH ×2 (13:48→21:06)
[2023-06-08] MEDS ORDERED: VANCOMYCIN LEVEL IV ONE (15:30)
[2023-06-08 18:00] VITALS: BP 129/65; PULSE 67; RESP 16; TEMP 98.8; O2SAT 96
--- NOTE | 2023-06-08 18:08 | NUR ---
Problems reprioritized. Patient report given, questions answered & plan of care reviewed with Asmita Roberts
[2023-06-08] MEDS: traZODone 50mg tablet PO SCH (20:58)
[2023-06-08 22:00] VITALS: BP 151/90; PULSE 64; RESP 18; TEMP 97.3; O2SAT 98
[2023-06-09] MEDS: HYDROcodone/acetaminophen 10/325mg tab PO PRN ×5 (00:44→22:11)
[2023-06-09] MEDS: piperacillin/tazo 3.375gm/50ml 50 ML IV SCH ×3 (00:44→19:31)
[2023-06-09] MEDS ORDERED: VANCOMYCIN LEVEL IV ONE (03:30)
[2023-06-09 03:54] LABS: BASOPHILS % (AUTO) 0.6 % (0-1); EOSINOPHILS # (AUTO) 0.2 X10'3 (0-0.9); EOSINOPHILS % (AUTO) 4.4 % (0-6); HEMOGLOBIN 12.4 g/dl (12.0-16.0); LYMPHOCYTES # (AUTO) 1.3 X10'3 (1.1-4.8); LYMPHOCYTES % (AUTO) 28.8 % (21-51); MEAN CORPUSCULAR HEMOGLOBIN 30.6 PG (27.0-31.0); MEAN CORPUSCULAR HGB CONC 33.6 g/dL (33.0-36.5); MONOCYTES # (AUTO) 0.3 X10'3 (0-0.9); MONOCYTES % (AUTO) 6.3 % (2-12); NEUTROPHILS # (AUTO) 2.7 X10'3 (1.8-7.7); NEUTROPHILS % (AUTO) 59.9 % (42-75); PLATELET COUNT 192 X10'3 (140-440); RED BLOOD COUNT 4.07 X10'6 (4.20-5.60); RED CELL DISTRIBUTION WIDTH 14.5 % (11.5-14.5); WHITE BLOOD COUNT 4.5 X10'3 (4.5-11.0)
[2023-06-09 04:12] LABS: ALANINE AMINOTRANSFERASE 91 U/L (12-78); ALBUMIN 3.3 G/DL (3.4-5.0); ALBUMIN/GLOBULIN RATIO 0.8 (1.1-1.5); ALKALINE PHOSPHATASE 115 IU/L (46-116); ANION GAP 8 (8-16); ASPARTATE AMINO TRANSFERASE 81 U/L (10-37); BILIRUBIN,TOTAL 0.5 MG/DL (0.1-1.0); BLOOD UREA NITROGEN 15 MG/DL (7-18); CHLORIDE 105 MMOL/L (99-107); GLUCOSE 136 MG/DL (70-104); POTASSIUM 3.6 MMOL/L (3.5-5.1); SODIUM 140 MMOL/L (135-145); TOTAL CARBON DIOXIDE 27.4 MMOL/L (24-32); TOTAL PROTEIN 7.2 G/DL (6.4-8.2); eCRCL 56 ML/MIN; eGFR 58 ML/MIN
[2023-06-09 04:47] LABS: VANCOMYCIN,TROUGH 20.8 UG/ML (6.0-14.0)
--- NOTE | 2023-06-09 04:49 | NUR ---
Vanco Trough 20.8, notified Sema pharmacist who states to give the 0400 dose since it has been decreased already and then AM pharmacist will review further.
[2023-06-09] MEDS: VANCOMYCIN 750MG IV in NS 250 ML IV SCH ×2 (04:56→16:27)
--- NOTE | 2023-06-09 05:20 | NUR ---
Patient in room ORTHO 4012. I have received report from Laney GARCIA and had the opportunity to ask questions and assume patient care.
[2023-06-09 06:30] VITALS: BP 168/95; PULSE 66; RESP 20; TEMP 97.8; O2SAT 97
--- NOTE | 2023-06-09 06:54 | NUR ---
Patient report given to Laney RN, patient resting comfortably at this time.
[2023-06-09] MEDS: nystatin 15 GM powder TP SCH ×3 (08:00→22:14)
[2023-06-09] MEDS: K and/or MAG REPLACEMENT MC SCH ×2 (08:00→19:43)
[2023-06-09] MEDS: docusate sod 100mg capsule PO SCH ×2 (08:00→19:43)
[2023-06-09] MEDS: gabapentin 400mg capsule PO SCH ×3 (08:14→22:11)
[2023-06-09] MEDS: duloxetine 20mg capsule.DR PO SCH (08:15)
[2023-06-09] MEDS: lisinopril 10 MG tablet PO SCH (08:16)
[2023-06-09] MEDS: metoprolol succinate 25mg (24-HOUR) SR. Tablet PO SCH (08:17)
[2023-06-09] MEDS: enoxaparin 40mg/0.4ml syringe SUBCUT SCH (08:19)
[2023-06-09 08:45] VITALS: RESP 16
[2023-06-09 10:16] VITALS: BP 167/90; PULSE 60; RESP 15; TEMP 98.8; O2SAT 96
[2023-06-09 16:37] LABS: BILIRUBIN,URINE NEGATIVE (Neg); CLARITY,URINE CLEAR (Clear); COLOR,URINE YELLOW (Yellow); GLUCOSE, URINE NEGATIVE (Neg); KETONES,URINE NEGATIVE (Neg); LEUKOCYTE ESTERASE ,URINE NEGATIVE (Neg); NITRITES, URINE NEGATIVE (Neg); OCCULT BLOOD,URINE NEGATIVE (Neg); PH,URINE 5.5 (4.8-8.0); PROTEIN,URINE NEGATIVE (Neg); UA COLLECTION TYPE CLN CATCH MIDSTREAM; UROBILINOGEN,URINE 0.2 E.U/dL (0.2-1.0)
[2023-06-09 18:00] VITALS: BP 159/84; PULSE 74; RESP 16; TEMP 98; O2SAT 93
--- NOTE | 2023-06-09 18:17 | NUR ---
Report given to DARNELL rose RN
[2023-06-09 19:15] VITALS: RESP 16; O2SAT 93
[2023-06-09 22:00] VITALS: BP 147/74; PULSE 53; RESP 18; TEMP 98.1; O2SAT 95
[2023-06-09] MEDS: traZODone 50mg tablet PO SCH (22:11)
[2023-06-10] VITALS (7 sets, daily range): BP systolic 135–176; BP diastolic 60–99; PULSE 51–86; RESP 13–17; TEMP 97.8–98.1; O2SAT 94–98
[2023-06-10] MEDS: piperacillin/tazo 3.375gm/50ml 50 ML IV SCH ×3 (02:01→16:58)
[2023-06-10] MEDS: HYDROcodone/acetaminophen 10/325mg tab PO PRN ×5 (02:04→22:45)
[2023-06-10] MEDS: VANCOMYCIN 750MG IV in NS 250 ML IV SCH ×2 (04:17→16:58)
--- NOTE | 2023-06-10 06:11 | NUR ---
Problems reprioritized. Patient report given, questions answered & plan of care reviewed with Laney GARCIA.
[2023-06-10] MEDS: gabapentin 400mg capsule PO SCH ×3 (07:36→20:15)
[2023-06-10] MEDS: lisinopril 10 MG tablet PO SCH (07:36)
[2023-06-10] MEDS: metoprolol succinate 25mg (24-HOUR) SR. Tablet PO SCH (07:37)
[2023-06-10] MEDS: enoxaparin 40mg/0.4ml syringe SUBCUT SCH (07:37)
[2023-06-10] MEDS: nystatin 15 GM powder TP SCH ×3 (07:38→20:15)
[2023-06-10] MEDS: docusate sod 100mg capsule PO SCH ×2 (07:38→20:00)
[2023-06-10] MEDS: duloxetine 20mg capsule.DR PO SCH (07:40)
[2023-06-10 07:58] LABS: BASOPHILS % (AUTO) 0.8 % (0-1); EOSINOPHILS # (AUTO) 0.3 X10'3 (0-0.9); EOSINOPHILS % (AUTO) 6.4 % (0-6); HEMOGLOBIN 12.5 g/dl (12.0-16.0); LYMPHOCYTES # (AUTO) 1.5 X10'3 (1.1-4.8); LYMPHOCYTES % (AUTO) 31.9 % (21-51); MEAN CORPUSCULAR HEMOGLOBIN 31.1 PG (27.0-31.0); MEAN CORPUSCULAR HGB CONC 33.7 g/dL (33.0-36.5); MEAN CORPUSCULAR VOLUME 92.2 FL (78-98); MEAN PLATELET VOLUME 8.9 FL (7.4-10.4); MONOCYTES # (AUTO) 0.4 X10'3 (0-0.9); MONOCYTES % (AUTO) 7.9 % (2-12); NEUTROPHILS # (AUTO) 2.4 X10'3 (1.8-7.7); PLATELET COUNT 189 X10'3 (140-440); RED BLOOD COUNT 4.01 X10'6 (4.20-5.60); RED CELL DISTRIBUTION WIDTH 14.4 % (11.5-14.5); WHITE BLOOD COUNT 4.6 X10'3 (4.5-11.0)
[2023-06-10] MEDS ORDERED: labetalol 20mg/4ml (5mg/ml) syringe IV ONE (08:00)
[2023-06-10] MEDS: K and/or MAG REPLACEMENT MC SCH ×2 (08:00→19:46)
[2023-06-10 08:05] LABS: ALANINE AMINOTRANSFERASE 63 U/L (12-78); ALBUMIN/GLOBULIN RATIO 0.8 (1.1-1.5); ALKALINE PHOSPHATASE 94 IU/L (46-116); ANION GAP 5 (8-16); ASPARTATE AMINO TRANSFERASE 38 U/L (10-37); BILIRUBIN,TOTAL 0.3 MG/DL (0.1-1.0); BLOOD UREA NITROGEN 10 MG/DL (7-18); BUN/CREATININE RATIO 11.2 (10.0-20.0); CALCIUM 8.6 MG/DL (8.5-10.1); CHLORIDE 108 MMOL/L (99-107); CREATININE 0.89 MG/DL (0.40-0.90); GLUCOSE 111 MG/DL (70-104); POTASSIUM 3.8 MMOL/L (3.5-5.1); SODIUM 140 MMOL/L (135-145); TOTAL CARBON DIOXIDE 27.1 MMOL/L (24-32); TOTAL PROTEIN 6.6 G/DL (6.4-8.2); eCRCL 62 ML/MIN; eGFR 66 ML/MIN
--- NOTE | 2023-06-10 10:59 | NUR ---
Patient is not on a telemetry unit, Trandate 20 mg not given. BP 146/71
--- NOTE | 2023-06-10 13:03 | NUR ---
Reta Snider in to Addendum: 06/10/23 at 1303 by Laney Bourgeois RN see patient at bedside.
[2023-06-10] MEDS ORDERED: VANCOMYCIN LEVEL IV ONE (15:30)
--- NOTE | 2023-06-10 18:32 | NUR ---
Patient in room ORTHO 4012. I have received report from Laney GARCIA and had the opportunity to ask questions and assume patient care.
[2023-06-10] MEDS: traZODone 50mg tablet PO SCH (20:15)
[2023-06-11] MEDS: piperacillin/tazo 3.375gm/50ml 50 ML IV SCH ×2 (01:44→06:52)
[2023-06-11 01:55] VITALS: BP 183/100; PULSE 54
--- NOTE | 2023-06-11 01:55 | NUR ---
promotional table spacer PAGER ID: [phone] MESSAGE: Pt. Marina Mathis 4012B has continuing elevated bp. Now 183/100,HR, HR 54. states takes hydrochlorothiazide at home but was not put on her e-mar. has been getting lisinopril and toprol. Please call .Reyna [phone] .Joseks
[2023-06-11] MEDS ORDERED: hydrALAZINE 20mg/ml inj. IV SCH (02:00)
[2023-06-11] MEDS ORDERED: hydrALAZINE 20mg/ml inj. IV PRN (02:05)
[2023-06-11] MEDS: VANCOMYCIN 750MG IV in NS 250 ML IV SCH (05:26)
[2023-06-11] MEDS: HYDROcodone/acetaminophen 10/325mg tab PO PRN ×4 (05:27→19:56)
--- NOTE | 2023-06-11 06:15 | NUR ---
Problems reprioritized. Patient report given, questions answered & plan of care reviewed with Laney GARCIA.
[2023-06-11 06:43] VITALS: BP 194/78; PULSE 56; RESP 16; TEMP 98.9; O2SAT 98
[2023-06-11 06:50] LABS: HEMOGLOBIN 13.6 g/dl (12.0-16.0); MEAN CORPUSCULAR HEMOGLOBIN 31.2 PG (27.0-31.0); MEAN PLATELET VOLUME 8.7 FL (7.4-10.4)
[2023-06-11] MEDS: duloxetine 20mg capsule.DR PO SCH (06:52)
[2023-06-11] MEDS: gabapentin 400mg capsule PO SCH ×2 (06:53→13:45)
[2023-06-11] MEDS: enoxaparin 40mg/0.4ml syringe SUBCUT SCH (06:53)
[2023-06-11] MEDS: nystatin 15 GM powder TP SCH ×2 (06:53→13:45)
[2023-06-11] MEDS: metoprolol succinate 25mg (24-HOUR) SR. Tablet PO SCH (06:53)
[2023-06-11 06:54] LABS: EOSINOPHILS # (AUTO) 0.2 X10'3 (0-0.9); EOSINOPHILS % (AUTO) 5.4 % (0-6); HEMATOCRIT 40.2 % (35.0-45.0); LYMPHOCYTES # (AUTO) 1.4 X10'3 (1.1-4.8); LYMPHOCYTES % (AUTO) 29.8 % (21-51); MEAN CORPUSCULAR VOLUME 91.7 FL (78-98); MONOCYTES # (AUTO) 0.3 X10'3 (0-0.9); MONOCYTES % (AUTO) 6.6 % (2-12); NEUTROPHILS # (AUTO) 2.6 X10'3 (1.8-7.7); NEUTROPHILS % (AUTO) 57.2 % (42-75); PLATELET COUNT 207 X10'3 (140-440); RED BLOOD COUNT 4.38 X10'6 (4.20-5.60); RED CELL DISTRIBUTION WIDTH 14.5 % (11.5-14.5); WHITE BLOOD COUNT 4.5 X10'3 (4.5-11.0)
[2023-06-11] MEDS: docusate sod 100mg capsule PO SCH (06:54)
[2023-06-11] MEDS: lisinopril 10 MG tablet PO SCH (06:57)
[2023-06-11 07:15] LABS: ALANINE AMINOTRANSFERASE 62 U/L (12-78); ALBUMIN 3.5 G/DL (3.4-5.0); ALBUMIN/GLOBULIN RATIO 0.9 (1.1-1.5); ALKALINE PHOSPHATASE 97 IU/L (46-116); ANION GAP 8 (8-16); ASPARTATE AMINO TRANSFERASE 32 U/L (10-37); BILIRUBIN,TOTAL 0.3 MG/DL (0.1-1.0); BLOOD UREA NITROGEN 9 MG/DL (7-18); CALCIUM 9.1 MG/DL (8.5-10.1); CHLORIDE 106 MMOL/L (99-107); GLUCOSE 98 MG/DL (70-104); POTASSIUM 3.4 MMOL/L (3.5-5.1); SODIUM 141 MMOL/L (135-145); TOTAL CARBON DIOXIDE 27.3 MMOL/L (24-32); TOTAL PROTEIN 7.6 G/DL (6.4-8.2); eCRCL 56 ML/MIN; eGFR 58 ML/MIN
[2023-06-11] MEDS ORDERED: lisinopril 20mg tablet PO SCH (07:55)
[2023-06-11 08:00] VITALS: RESP 18
[2023-06-11] MEDS: K and/or MAG REPLACEMENT MC SCH (08:41)
[2023-06-11 10:51] VITALS: BP 166/86; PULSE 60; RESP 16; TEMP 98.4; O2SAT 97
[2023-06-11] MEDS ORDERED: potassium Cl 40MEQ/1/2NS 520ml 520 ML IV PRN (15:20)
[2023-06-11] MEDS ORDERED: potassium Cl 20 mEq SR tablet PO PRN ×2 (15:20)
[2023-06-11] MEDS ORDERED: piperacillin/tazo 4.5gm/100ml 100 ML IV SCH (16:00)
[2023-06-11] MEDS ORDERED: LINE600T11 CORPAK (17:06)
[2023-06-11 18:00] VITALS: BP 139/85; PULSE 63; RESP 18; TEMP 98.2; O2SAT 97
== END 2023-06-11 20:10 | disposition home health service (06) | DRG 383 ==
LOC: ER 20:24 → ED HOLD 06-07 05:37 → ORTHO 4S 06-07 17:20
PROVIDERS: ADMIT Internal Medicine; ATTEND Internal Medicine
DX: L03.115 Cellulitis of right lower limb (principal); E66.01 Morbid (severe) obesity due to excess calories; I10 Essential (primary) hypertension; J45.909 Unspecified asthma, uncomplicated; F41.0 Panic disorder [episodic paroxysmal anxiety]; Z79.899 Other long term (current) drug therapy; Z88.1 Allergy status to other antibiotic agents; Z88.5 Allergy status to narcotic agent; Z88.8 Allergy status to other drugs, medicaments and biological substances; Z86.73 Personal history of transient ischemic attack (TIA), and cerebral infarction without residual deficits; Z82.49 Family history of ischemic heart disease and other diseases of the circulatory system; Z90.49 Acquired absence of other specified parts of digestive tract; Z82.3 Family history of stroke; Z68.41 Body mass index [BMI] 40.0-44.9, adult; Z87.891 Personal history of nicotine dependence
CPT/HCPCS: 36415; 71045; 73020; 73701; 80053; 80202; 81001; 81003; 83605; 83735; 83880; 84145; 85025; 87040; 87081; 93005; 93971; 99285; A6196; A6209; A6213; A6250; A6446; A6449; G0378; J0780; J1650; J2060; J2405; J2543; J3010; J3370; J3490; J7050; Q9967

== ENCOUNTER 2023-07-18 10:47 | Inpatient (IN) | payer MEDICAID ==
[~2023-07-18] VITALS: Ht 162.6 cm; Wt 125.0 kg
[~2023-07-18 10:47] MED LIST changes: -AMO250C PO; +DULO20CA18 PO; +GABA-535 PO; -GABA300C PO; +HYDR-3965 PO; -LOP12.5T PO; +METO-411 PO; +TRAZ-256 PO
--- NOTE | 2023-07-18 11:07 | NUR ---
ATTEMPTED TO CALL PT, LEFT MESSAGE
--- NOTE | 2023-07-18 11:08 | NUR ---
PTS DAUGHTER CALLED ER AND SHE WILL ATTEMPT TO GET PT TO RETURN TO ER TODAY
[2023-07-18] MEDS ORDERED: ketorolac trometh. 30mg/ml inj. IV STA (15:38)
[2023-07-18] MEDS ORDERED: piperacillin/tazo 3.375gm/50ml 50 ML IV STA (15:40)
[2023-07-18] MEDS ORDERED: morphine 4 MG/ML inj SYRINge IV ONE (15:40)
[2023-07-18] MEDS ORDERED: ondansetron/PF 4mg/2ml inj IV ONE (15:40)
[2023-07-18] MEDS ORDERED: normal saline 1000ml 1,000 ML IV ONE (15:40)
[2023-07-18] MEDS: morphine 2 MG/ML inj. syringe IV PRN ×5 (17:34→20:15)
[2023-07-18 17:51] LABS: BASOPHILS # (AUTO) 0.1 X10'3 (0-0.2); EOSINOPHILS # (AUTO) 0.2 X10'3 (0-0.9); EOSINOPHILS % (AUTO) 2.7 % (0-6); HEMATOCRIT 38.7 % (35.0-45.0); HEMOGLOBIN 13.1 g/dl (12.0-16.0); LYMPHOCYTES # (AUTO) 1.8 X10'3 (1.1-4.8); LYMPHOCYTES % (AUTO) 30.5 % (21-51); MEAN CORPUSCULAR HEMOGLOBIN 30.4 PG (27.0-31.0); MEAN CORPUSCULAR HGB CONC 33.9 g/dL (33.0-36.5); MEAN CORPUSCULAR VOLUME 89.9 FL (78-98); MEAN PLATELET VOLUME 8.7 FL (7.4-10.4); MONOCYTES # (AUTO) 0.4 X10'3 (0-0.9); MONOCYTES % (AUTO) 7.7 % (2-12); NEUTROPHILS # (AUTO) 3.4 X10'3 (1.8-7.7); NEUTROPHILS % (AUTO) 58.1 % (42-75); PLATELET COUNT 245 X10'3 (140-440); WHITE BLOOD COUNT 5.8 X10'3 (4.5-11.0)
[2023-07-18 17:55] LABS: ALANINE AMINOTRANSFERASE 33 U/L (12-78); ALBUMIN 3.7 G/DL (3.4-5.0); ALBUMIN/GLOBULIN RATIO 0.9 (1.1-1.5); ALKALINE PHOSPHATASE 100 IU/L (46-116); ANION GAP 10 (8-16); ASPARTATE AMINO TRANSFERASE 30 U/L (10-37); BILIRUBIN,TOTAL 0.4 MG/DL (0.1-1.0); BLOOD UREA NITROGEN 17 MG/DL (7-18); BUN/CREATININE RATIO 20.2 (10.0-20.0); CALCIUM 9.1 MG/DL (8.5-10.1); CHLORIDE 105 MMOL/L (99-107); CREATININE 0.84 MG/DL (0.40-0.90); GLUCOSE 102 MG/DL (70-104); MAGNESIUM 2.3 MG/DL (1.5-2.4); POTASSIUM 3.8 MMOL/L (3.5-5.1); SODIUM 139 MMOL/L (135-145); TOTAL CARBON DIOXIDE 24.3 MMOL/L (24-32); TOTAL PROTEIN 7.6 G/DL (6.4-8.2); eCRCL 66 ML/MIN; eGFR 71 ML/MIN
[2023-07-18 17:59] LABS: URINE HCG NEGATIVE (NEG)
[2023-07-18 18:07] LABS: BILIRUBIN,URINE NEGATIVE (Neg); CLARITY,URINE CLEAR (Clear); COLOR,URINE YELLOW (Yellow); GLUCOSE, URINE NEGATIVE (Neg); KETONES,URINE NEGATIVE (Neg); LEUKOCYTE ESTERASE ,URINE NEGATIVE (Neg); NITRITES, URINE NEGATIVE (Neg); OCCULT BLOOD,URINE TRACE-INTACT (Neg); PH,URINE 5.5 (4.8-8.0); PROTEIN,URINE NEGATIVE (Neg); UROBILINOGEN,URINE 0.2 E.U/dL (0.2-1.0)
[2023-07-18 18:08] LABS: UA COLLECTION TYPE CLN CATCH MIDSTREAM
--- NOTE | 2023-07-18 18:08 | NUR ---
Hosp. Office called no answer
[2023-07-18 18:19] LABS: BACTERIA,URINE NONE SEEN /HPF (Neg); RBC,URINE 0-2 /HPF (0-2); SQUAMOUS EPITHELIAL CELL,UR FEW /LPF (FEW); WBC,URINE 0-4 /HPF (0-4)
[2023-07-18] MEDS ORDERED: magnesium Cl slow-release 64mg tablet PO PRN (19:05)
[2023-07-18] MEDS ORDERED: ondansetron/PF 4mg/2ml inj IV PRN (19:05)
[2023-07-18] MEDS ORDERED: acetaminophen 325mg tablet PO PRN (19:05)
[2023-07-18] MEDS ORDERED: magnesium 2GM in 50ml NS 50 ML IV PRN (19:05)
[2023-07-18] MEDS ORDERED: potassium Cl 20 mEq SR tablet PO PRN ×2 (19:05)
[2023-07-18] MEDS ORDERED: potassium Cl 40MEQ/1/2NS 520ml 520 ML IV PRN (19:05)
[2023-07-18] MEDS ORDERED: magnesium 4gm in 100ml NS 100 ML IV PRN (19:05)
[2023-07-18] MEDS ORDERED: magnesium hydroxide 30ml (MOM) UD suspension PO PRN (19:05)
[2023-07-18] MEDS ORDERED: mag hydrox/Alum hydrox/simeth 30ml oral suspension PO PRN (19:05)
--- NOTE | 2023-07-18 19:17 | NUR ---
Patient resting in bed quietly with eyes open. Respirations are even and unlabored. Pt in no acute distress.
[2023-07-18] MEDS: K and/or MAG REPLACEMENT MC SCH (19:42)
[2023-07-18] MEDS: docusate sod 100mg capsule PO SCH (19:43)
[2023-07-18] MEDS ORDERED: metoprolol succinate 25mg (24-HOUR) SR. Tablet PO SCH (20:00)
[2023-07-18] MEDS: HYDROcodone/acetaminophen 10/325mg tab PO PRN (20:13)
[2023-07-18] MEDS: heparin, porcine 5000 units/ml vial SQ SCH (20:14)
[2023-07-18] MEDS: QUEtiapine 25mg tablet PO SCH (20:31)
[2023-07-18] MEDS ORDERED: GABA-535 PO (20:42)
[2023-07-18] MEDS ORDERED: HYDR25TA5 PO (20:42)
[2023-07-18] MEDS ORDERED: QUET50TA PO (20:42)
[2023-07-18] MEDS ORDERED: LISI40TA13 PO (20:42)
[2023-07-18] MEDS ORDERED: METO-384 PO (20:42)
[2023-07-18] MEDS ORDERED: TRAZ-256 PO (20:44)
[2023-07-18] MEDS ORDERED: HYDR-3686 PO (20:44)
[2023-07-18] MEDS ORDERED: HYDR-3965 PO (20:52)
[2023-07-18] MEDS ORDERED: METO100T7 PO (20:53)
[2023-07-18] MEDS ORDERED: HYDR50TA4 PO (20:54)
[2023-07-18] MEDS ORDERED: gabapentin 300mg capsule PO SCH (21:00)
--- NOTE | 2023-07-18 21:27 | NUR ---
Patient sitting on edge of bed in no acute distress. Respirations are even and unlabored. Patient eating food. Denies any needs at this time.
--- NOTE | 2023-07-18 21:53 | NUR ---
Report given to Wendy GARCIA. All questions answered at this time. No further questions or concerns.
[2023-07-18 22:05] VITALS: BP 143/82; PULSE 77; RESP 18; TEMP 97.8; O2SAT 96
--- NOTE | 2023-07-18 22:05 | NUR ---
PATIENT ADMITTED TO ROOM 4008 FROM ER FOR RIGHT LOWER LEG CELLULITIS. PLACED COMFORTABLE IN BED. VITAL SIGNS TAKEN AND RECORDED.
[2023-07-18 23:00] VITALS: RESP 18; O2SAT 96
[2023-07-19] MEDS: MEROPENEM 1GM/NS 100ML IVPB 100 ML IV SCH ×3 (01:17→15:28)
[2023-07-19] MEDS: HYDROcodone/acetaminophen 10/325mg tab PO PRN ×3 (03:03→15:27)
[2023-07-19] MEDS ORDERED: morphine 4 MG/ML inj SYRINge IV ONE (04:15)
--- NOTE | 2023-07-19 06:23 | NUR ---
Problems reprioritized. Patient report given, questions answered & plan of care reviewed with SAVANA GARCIA.
--- NOTE | 2023-07-19 06:46 | NUR ---
Patient in room ORTHO 4008. I have received report from Amelia Cisneros RN and had the opportunity to ask questions and assume patient care.
[2023-07-19 06:47] VITALS: BP 142/91; PULSE 62; RESP 16; TEMP 97.9; O2SAT 96
[2023-07-19 06:57] LABS: BASOPHILS % (AUTO) 0.6 % (0-1); EOSINOPHILS # (AUTO) 0.2 X10'3 (0-0.9); EOSINOPHILS % (AUTO) 3.9 % (0-6); HEMATOCRIT 36.9 % (35.0-45.0); HEMOGLOBIN 12.7 g/dl (12.0-16.0); LYMPHOCYTES # (AUTO) 2.2 X10'3 (1.1-4.8); LYMPHOCYTES % (AUTO) 37.8 % (21-51); MEAN CORPUSCULAR HGB CONC 34.3 g/dL (33.0-36.5); MEAN CORPUSCULAR VOLUME 90.5 FL (78-98); MEAN PLATELET VOLUME 8.5 FL (7.4-10.4); MONOCYTES # (AUTO) 0.5 X10'3 (0-0.9); MONOCYTES % (AUTO) 9.3 % (2-12); NEUTROPHILS # (AUTO) 2.9 X10'3 (1.8-7.7); NEUTROPHILS % (AUTO) 48.4 % (42-75); PLATELET COUNT 273 X10'3 (140-440); RED BLOOD COUNT 4.08 X10'6 (4.20-5.60); RED CELL DISTRIBUTION WIDTH 14.3 % (11.5-14.5); WHITE BLOOD COUNT 5.9 X10'3 (4.5-11.0)
[2023-07-19 07:01] LABS: ALANINE AMINOTRANSFERASE 47 U/L (12-78); ALBUMIN 3.8 G/DL (3.4-5.0); ALKALINE PHOSPHATASE 111 IU/L (46-116); ANION GAP 6 (8-16); ASPARTATE AMINO TRANSFERASE 44 U/L (10-37); BILIRUBIN,TOTAL 0.4 MG/DL (0.1-1.0); BLOOD UREA NITROGEN 25 MG/DL (7-18); BUN/CREATININE RATIO 16.4 (10.0-20.0); CHLORIDE 104 MMOL/L (99-107); CREATININE 1.52 MG/DL (0.40-0.90); GLUCOSE 109 MG/DL (70-104); MAGNESIUM 2.3 MG/DL (1.5-2.4); SODIUM 139 MMOL/L (135-145); TOTAL CARBON DIOXIDE 28.9 MMOL/L (24-32); TOTAL PROTEIN 7.7 G/DL (6.4-8.2); eCRCL 37 ML/MIN; eGFR 36 ML/MIN
[2023-07-19 08:00] VITALS: RESP 17; O2SAT 97
[2023-07-19] MEDS ORDERED: gabapentin 400mg capsule PO SCH (08:00)
[2023-07-19] MEDS: K and/or MAG REPLACEMENT MC SCH ×2 (08:00→19:44)
[2023-07-19] MEDS: heparin, porcine 5000 units/ml vial SQ SCH ×2 (09:11→19:52)
[2023-07-19] MEDS: hydrOXYzine 25 MG tablet PO SCH (09:12)
[2023-07-19] MEDS: metoprolol succinate 25mg (24-HOUR) SR. Tablet PO SCH ×2 (09:12→19:52)
[2023-07-19] MEDS: docusate sod 100mg capsule PO SCH ×2 (09:12→19:51)
[2023-07-19] MEDS: lisinopril 20mg tablet PO SCH (09:15)
[2023-07-19 10:00] VITALS: BP 135/80; PULSE 52; RESP 17; TEMP 97.9; O2SAT 97
--- NOTE | 2023-07-19 11:22 | NUR ---
Initial: Pt admit for RLE chronic wound. Wound care has been consulted, pending assessment at this time. Pt currently on a heart healthy diet, pending documentation of PO intake. LBM 07/18 per EMR. Will continue to follow and make recommendations as appropriate pending wound care assessment and trends in PO intake. Recommendations: 1) Continue heart healthy diet 2) Monitor need for ONS/additional protein 3) Routine bowel care 4) Scaled weight this admit; subsequent weekly scaled weights Addendum: 07/19/23 at [address] Amended: Links added.
[2023-07-19] MEDS ORDERED: ALBU6.7H14 INH (13:34)
[2023-07-19] MEDS ORDERED: ACET-1017 PO (13:35)
[2023-07-19] MEDS ORDERED: IBUP-1985 PO (13:35)
[2023-07-19] MEDS ORDERED: FLU VACC QS2023-24(6MOS UP)/PF 60 MCG/0.5 ML SYRINGE IM ONE (15:00)
--- NOTE | 2023-07-19 15:28 | NUR ---
PRESSURE ULCER EDUCATION: DEFINITION: A pressure ulcer is an area of skin that breaks down when you stay in one position too long. The constant pressure against the skin reduces the blood flow to that area and the affected tissue dies. CAUSES: "Being bedridden or in a wheelchair "Fragile skin "Having a chronic condition, such as diabetes or vascular disease "Inability to move certain parts of your body without assistance "Older age "Incontinence of urine or stool SYMPTOMS: "A reddened area that DOES NOT turn white when pressed on - this can be the beginning of a pressure ulcer "A blister, deep sore or a crater - these can be advanced pressure ulcers FIRST AID: "Relieve the pressure on this area "Keep the area clean and dry "Call your primary doctor if you see any of the above symptoms "DO NOT massage the area "DO NOT use a donut shaped or ring shaped pillow- these actually interfere with the blood flow and cause complications PREVENTION: "Check for pressure ulcers everyday "Change position at least every two hours to relieve pressure "Use items that help relieve pressure- pillows, sheepskin, foam padding, and powders. "Keep skin clean and dry "Eat healthy well balanced meals "Exercise daily IF YOU SEE ANY OF THESE SYMPTOMS WHILE IN THE HOSPITAL - TELL YOUR NURSE IMMEDIATELY. IF YOU SEE ANY OF THESE SYMPTOMS WHILE AT HOME OR HAVE ANY QUESTIONS OR CONCERNS ABOUT PRESSURE ULCERS - CALL YOUR PRIMARY DOCTOR IMMEDIATELY. Addendum: 07/19/23 at 1529 by Marysol Kiser RN Amended: Links added.
--- NOTE | 2023-07-19 16:33 | NUR ---
RM [id number] Saritha Mathis Ext [phone] PT HAS HAD NORCO 45 MIN AGO and continues to have pain. Can she have something else? thanks, Denisha
[2023-07-19 18:00] VITALS: BP 127/73; PULSE 60; RESP 16; TEMP 97.1; O2SAT 98
[2023-07-19] MEDS: morphine 4 MG/ML inj SYRINge IV PRN (18:05)
--- NOTE | 2023-07-19 18:22 | NUR ---
Problems reprioritized. Patient report given, questions answered & plan of care reviewed with Zainab GARCIA.
[2023-07-19] MEDS: gabapentin 400mg capsule PO SCH (19:51)
[2023-07-19] MEDS ORDERED: nystatin 15 GM powder TP SCH (20:00)
[2023-07-19] MEDS: QUEtiapine 25mg tablet PO SCH ×2 (21:00→21:55)
[2023-07-19] MEDS: traZODone 50mg tablet PO SCH (21:55)
[2023-07-19] MEDS: NYSTATIN 30 GM POWDER TP SCH (21:57)
[2023-07-19 22:00] VITALS: BP 151/88; PULSE 68; RESP 16; TEMP 98.4; O2SAT 99
[2023-07-19] MEDS: morphine 2 MG/ML inj. syringe IV PRN (22:40)
[2023-07-20] MEDS: MEROPENEM 1GM/NS 100ML IVPB 100 ML IV SCH ×3 (01:03→15:41)
[2023-07-20] MEDS: morphine 2 MG/ML inj. syringe IV PRN ×5 (02:41→20:00)
[2023-07-20] MEDS: HYDROcodone/acetaminophen 10/325mg tab PO PRN ×2 (05:20→17:11)
--- NOTE | 2023-07-20 06:16 | NUR ---
Problems reprioritized. Patient report given, questions answered & plan of care reviewed with Joanie GARCIA.
--- NOTE | 2023-07-20 06:27 | NUR ---
Patient in room ORTHO 4008. I have received report from Zainab GARCIA and had the opportunity to ask questions and assume patient care.
[2023-07-20 06:28] VITALS: BP 175/103; PULSE 76; RESP 18; TEMP 97.7; O2SAT 90
[2023-07-20 07:06] LABS: BASOPHILS % (AUTO) 0.5 % (0-1); EOSINOPHILS # (AUTO) 0.2 X10'3 (0-0.9); EOSINOPHILS % (AUTO) 3.4 % (0-6); HEMATOCRIT 36.1 % (35.0-45.0); HEMOGLOBIN 12.3 g/dl (12.0-16.0); LYMPHOCYTES # (AUTO) 1.9 X10'3 (1.1-4.8); LYMPHOCYTES % (AUTO) 27.1 % (21-51); MEAN CORPUSCULAR HEMOGLOBIN 30.7 PG (27.0-31.0); MEAN CORPUSCULAR VOLUME 90.3 FL (78-98); MEAN PLATELET VOLUME 8.7 FL (7.4-10.4); MONOCYTES # (AUTO) 0.6 X10'3 (0-0.9); MONOCYTES % (AUTO) 8.7 % (2-12); NEUTROPHILS # (AUTO) 4.2 X10'3 (1.8-7.7); NEUTROPHILS % (AUTO) 60.3 % (42-75); PLATELET COUNT 256 X10'3 (140-440); RED CELL DISTRIBUTION WIDTH 14.3 % (11.5-14.5)
[2023-07-20 08:00] VITALS: RESP 18; O2SAT 90
[2023-07-20] MEDS: K and/or MAG REPLACEMENT MC SCH ×2 (08:00→20:00)
[2023-07-20 08:03] LABS: ALANINE AMINOTRANSFERASE 38 U/L (12-78); ALBUMIN 3.3 G/DL (3.4-5.0); ALBUMIN/GLOBULIN RATIO 0.9 (1.1-1.5); ALKALINE PHOSPHATASE 103 IU/L (46-116); ANION GAP 11 (8-16); ASPARTATE AMINO TRANSFERASE 32 U/L (10-37); BILIRUBIN,TOTAL 0.3 MG/DL (0.1-1.0); BLOOD UREA NITROGEN 26 MG/DL (7-18); BUN/CREATININE RATIO 25.7 (10.0-20.0); CALCIUM 8.8 MG/DL (8.5-10.1); CHLORIDE 106 MMOL/L (99-107); CREATININE 1.01 MG/DL (0.40-0.90); GLUCOSE 125 MG/DL (70-104); MAGNESIUM 2.1 MG/DL (1.5-2.4); SODIUM 139 MMOL/L (135-145); TOTAL CARBON DIOXIDE 22.1 MMOL/L (24-32); TOTAL PROTEIN 6.9 G/DL (6.4-8.2); eCRCL 55 ML/MIN; eGFR 57 ML/MIN
[2023-07-20] MEDS: heparin, porcine 5000 units/ml vial SQ SCH ×2 (08:04→21:12)
[2023-07-20] MEDS: docusate sod 100mg capsule PO SCH ×2 (08:07→20:00)
[2023-07-20] MEDS: gabapentin 400mg capsule PO SCH ×2 (08:08→21:10)
[2023-07-20] MEDS: hydrOXYzine 25 MG tablet PO SCH (08:08)
[2023-07-20] MEDS: lisinopril 20mg tablet PO SCH (08:11)
[2023-07-20] MEDS: metoprolol succinate 25mg (24-HOUR) SR. Tablet PO SCH ×3 (08:12→21:10)
[2023-07-20] MEDS: NYSTATIN 30 GM POWDER TP SCH ×2 (08:13→21:12)
--- NOTE | 2023-07-20 09:52 | NUR ---
F/u: Pt seen by wound care, per note pt with weeping ulcerations x2 to RLE with surrounding tissue that is macerated, red, and edematous consistent with cellulitis. Pt eating well, documented with 100% PO intake on heart healthy diet. No nutrition intervention implemented at this time. Will continue to follow and make recommendations as appropriate. Addendum: 07/20/23 at [address] Amended: Links added.
[2023-07-20 10:00] VITALS: BP 117/66; PULSE 62; RESP 16; TEMP 98.2; O2SAT 98
[2023-07-20 18:00] VITALS: BP 143/72; PULSE 69; RESP 18; TEMP 98.8; O2SAT 92
[2023-07-20] MEDS: QUEtiapine 25mg tablet PO SCH (21:11)
[2023-07-20] MEDS: traZODone 50mg tablet PO SCH (21:45)
[2023-07-20 22:00] VITALS: BP 154/70; PULSE 60; RESP 17; TEMP 98; O2SAT 97
[2023-07-21] MEDS: morphine 2 MG/ML inj. syringe IV PRN (02:04)
[2023-07-21] MEDS: HYDROcodone/acetaminophen 10/325mg tab PO PRN ×4 (04:31→21:41)
[2023-07-21 05:00] VITALS: BP 148/60; PULSE 74; RESP 17; TEMP 98; O2SAT 99
[2023-07-21 07:26] LABS: BASOPHILS % (AUTO) 0.7 % (0-1); EOSINOPHILS # (AUTO) 0.2 X10'3 (0-0.9); EOSINOPHILS % (AUTO) 3.9 % (0-6); HEMOGLOBIN 12.3 g/dl (12.0-16.0); LYMPHOCYTES # (AUTO) 2.2 X10'3 (1.1-4.8); MEAN CORPUSCULAR HEMOGLOBIN 31.6 PG (27.0-31.0); MEAN CORPUSCULAR HGB CONC 35.2 g/dL (33.0-36.5); MEAN CORPUSCULAR VOLUME 89.9 FL (78-98); MEAN PLATELET VOLUME 8.7 FL (7.4-10.4); MONOCYTES # (AUTO) 0.4 X10'3 (0-0.9); MONOCYTES % (AUTO) 8.1 % (2-12); NEUTROPHILS # (AUTO) 2.2 X10'3 (1.8-7.7); NEUTROPHILS % (AUTO) 43.3 % (42-75); PLATELET COUNT 218 X10'3 (140-440); RED BLOOD COUNT 3.89 X10'6 (4.20-5.60); RED CELL DISTRIBUTION WIDTH 14.4 % (11.5-14.5); WHITE BLOOD COUNT 5.1 X10'3 (4.5-11.0)
[2023-07-21 07:39] LABS: ANION GAP 6 (8-16); BLOOD UREA NITROGEN 17 MG/DL (7-18); CHLORIDE 107 MMOL/L (99-107); CREATININE 0.74 MG/DL (0.40-0.90); GLUCOSE 112 MG/DL (70-104); SODIUM 138 MMOL/L (135-145); TOTAL CARBON DIOXIDE 25.3 MMOL/L (24-32)
[2023-07-21 07:40] LABS: ALANINE AMINOTRANSFERASE 33 U/L (12-78); ALBUMIN 3.2 G/DL (3.4-5.0); ALBUMIN/GLOBULIN RATIO 0.9 (1.1-1.5); ALKALINE PHOSPHATASE 93 IU/L (46-116); ASPARTATE AMINO TRANSFERASE 29 U/L (10-37); BILIRUBIN,TOTAL 0.4 MG/DL (0.1-1.0); TOTAL PROTEIN 6.8 G/DL (6.4-8.2); eCRCL 75 ML/MIN; eGFR 82 ML/MIN
[2023-07-21] MEDS: K and/or MAG REPLACEMENT MC SCH ×2 (08:00→20:00)
[2023-07-21] MEDS: docusate sod 100mg capsule PO SCH ×2 (08:00→21:19)
[2023-07-21] MEDS: gabapentin 400mg capsule PO SCH ×2 (08:12→21:19)
[2023-07-21] MEDS: hydrOXYzine 25 MG tablet PO SCH (08:12)
[2023-07-21] MEDS: lisinopril 20mg tablet PO SCH (08:13)
[2023-07-21] MEDS: metoprolol succinate 25mg (24-HOUR) SR. Tablet PO SCH ×2 (08:14→20:00)
[2023-07-21] MEDS: heparin, porcine 5000 units/ml vial SQ SCH ×2 (08:16→21:21)
[2023-07-21] MEDS: MEROPENEM 1GM/NS 100ML IVPB 100 ML IV SCH ×2 (08:16→21:29)
[2023-07-21] MEDS: NYSTATIN 30 GM POWDER TP SCH ×2 (08:38→21:29)
[2023-07-21 10:00] VITALS: BP 137/78; PULSE 57; RESP 18; TEMP 97.6; O2SAT 96
[2023-07-21] MEDS: morphine 4 MG/ML inj SYRINge IV PRN ×2 (12:11→19:55)
--- NOTE | 2023-07-21 18:02 | NUR ---
Report given to Jose Manuel GARCIA. Patient eating dinner. No distress or new concerns at this time.
[2023-07-21 19:15] VITALS: BP 145/80; PULSE 57; RESP 16; RESP 18; TEMP 98.3; O2SAT 96
[2023-07-21] MEDS: QUEtiapine 25mg tablet PO SCH (21:20)
[2023-07-21] MEDS: traZODone 50mg tablet PO SCH (21:20)
[2023-07-21 22:00] VITALS: BP 135/71; PULSE 60; RESP 16; TEMP 98; O2SAT 96
[2023-07-22] MEDS: morphine 4 MG/ML inj SYRINge IV PRN ×3 (02:35→22:48)
[2023-07-22] MEDS: HYDROcodone/acetaminophen 10/325mg tab PO PRN ×3 (05:37→15:51)
[2023-07-22 06:30] VITALS: BP 112/55; PULSE 61; RESP 16; TEMP 97.8; O2SAT 97
--- NOTE | 2023-07-22 06:39 | NUR ---
Problems reprioritized. Patient report given, questions answered & plan of care reviewed with Merced. Addendum: 07/22/23 at 0640 by Milad Kenyon RN Amended: Links added.
[2023-07-22 06:41] LABS: ALANINE AMINOTRANSFERASE 35 U/L (12-78); ALBUMIN 3.4 G/DL (3.4-5.0); ALBUMIN/GLOBULIN RATIO 0.9 (1.1-1.5); ALKALINE PHOSPHATASE 93 IU/L (46-116); ANION GAP 6 (8-16); ASPARTATE AMINO TRANSFERASE 30 U/L (10-37); BILIRUBIN,TOTAL 0.3 MG/DL (0.1-1.0); BLOOD UREA NITROGEN 16 MG/DL (7-18); BUN/CREATININE RATIO 19.5 (10.0-20.0); CALCIUM 9.3 MG/DL (8.5-10.1); CHLORIDE 106 MMOL/L (99-107); CREATININE 0.82 MG/DL (0.40-0.90); GLUCOSE 112 MG/DL (70-104); POTASSIUM 4.3 MMOL/L (3.5-5.1); SODIUM 138 MMOL/L (135-145); TOTAL CARBON DIOXIDE 26.3 MMOL/L (24-32); eCRCL 68 ML/MIN; eGFR 73 ML/MIN
[2023-07-22 06:49] LABS: BASOPHILS % (AUTO) 0.5 % (0-1); EOSINOPHILS # (AUTO) 0.2 X10'3 (0-0.9); EOSINOPHILS % (AUTO) 4.2 % (0-6); HEMATOCRIT 36.4 % (35.0-45.0); HEMOGLOBIN 12.5 g/dl (12.0-16.0); LYMPHOCYTES # (AUTO) 2.4 X10'3 (1.1-4.8); LYMPHOCYTES % (AUTO) 47.9 % (21-51); MEAN CORPUSCULAR HEMOGLOBIN 31.4 PG (27.0-31.0); MEAN CORPUSCULAR HGB CONC 34.4 g/dL (33.0-36.5); MEAN CORPUSCULAR VOLUME 91.3 FL (78-98); MEAN PLATELET VOLUME 9.2 FL (7.4-10.4); MONOCYTES # (AUTO) 0.5 X10'3 (0-0.9); MONOCYTES % (AUTO) 9.7 % (2-12); NEUTROPHILS # (AUTO) 1.9 X10'3 (1.8-7.7); NEUTROPHILS % (AUTO) 37.7 % (42-75); PLATELET COUNT 242 X10'3 (140-440); RED BLOOD COUNT 3.98 X10'6 (4.20-5.60); RED CELL DISTRIBUTION WIDTH 14.5 % (11.5-14.5)
--- NOTE | 2023-07-22 07:08 | NUR ---
Patient in room ORTHO 4023. I have received report from Merced GARCIA and had the opportunity to ask questions and assume patient care.
--- NOTE | 2023-07-22 07:12 | NUR ---
Patient in room ORTHO 4023. I have received report from Jose Manuel GARCIA and had the opportunity to ask questions and assume patient care.
--- NOTE | 2023-07-22 07:16 | NUR ---
Problems reprioritized. Patient report given, questions answered & plan of care reviewed with Caitlin GARCIA.
[2023-07-22 07:30] VITALS: RESP 16
[2023-07-22] MEDS: MEROPENEM 1GM/NS 100ML IVPB 100 ML IV SCH (07:33)
[2023-07-22] MEDS: gabapentin 400mg capsule PO SCH ×2 (07:33→20:24)
[2023-07-22] MEDS: lisinopril 20mg tablet PO SCH (07:34)
[2023-07-22] MEDS: hydrOXYzine 25 MG tablet PO SCH (07:34)
[2023-07-22] MEDS: heparin, porcine 5000 units/ml vial SQ SCH ×2 (07:35→20:24)
[2023-07-22] MEDS: docusate sod 100mg capsule PO SCH ×2 (07:45→20:00)
[2023-07-22] MEDS: metoprolol succinate 25mg (24-HOUR) SR. Tablet PO SCH (07:53)
[2023-07-22] MEDS: NYSTATIN 30 GM POWDER TP SCH ×2 (08:00→20:00)
[2023-07-22] MEDS: K and/or MAG REPLACEMENT MC SCH ×2 (08:00→20:00)
[2023-07-22 10:00] VITALS: BP 159/71; PULSE 59; RESP 16; TEMP 97.8; O2SAT 97
[2023-07-22] MEDS: vancomycin/NS 1 GM ADD-VANTAGE 250 ML IV SCH ×2 (13:15→20:25)
[2023-07-22] MEDS: piperacillin/tazo 3.375gm/50ml 50 ML IV SCH ×2 (15:50→23:35)
[2023-07-22 18:20] VITALS: BP 155/64; PULSE 64; RESP 15; TEMP 98.1; O2SAT 97
--- NOTE | 2023-07-22 18:39 | NUR ---
Problems reprioritized. Patient report given, questions answered & plan of care reviewed with Radha GARCIA.
[2023-07-22] MEDS: QUEtiapine 25mg tablet PO SCH (20:24)
[2023-07-22] MEDS: traZODone 50mg tablet PO SCH (20:24)
[2023-07-22 22:00] VITALS: BP 126/75; PULSE 72; RESP 16; TEMP 99.1; O2SAT 96
[2023-07-23] MEDS: HYDROcodone/acetaminophen 10/325mg tab PO PRN ×3 (02:47→17:34)
[2023-07-23] MEDS: vancomycin/NS 1 GM ADD-VANTAGE 250 ML IV SCH ×2 (03:22→11:00)
[2023-07-23 06:00] VITALS: BP 126/61; PULSE 74; RESP 16; TEMP 98.9; O2SAT 97
[2023-07-23 06:08] LABS: BASOPHILS % (AUTO) 0.1 % (0-1); EOSINOPHILS # (AUTO) 0.2 X10'3 (0-0.9); EOSINOPHILS % (AUTO) 3.3 % (0-6); HEMATOCRIT 34.4 % (35.0-45.0); HEMOGLOBIN 11.7 g/dl (12.0-16.0); LYMPHOCYTES % (AUTO) 17.4 % (21-51); MEAN CORPUSCULAR HEMOGLOBIN 31.1 PG (27.0-31.0); MEAN CORPUSCULAR HGB CONC 34.1 g/dL (33.0-36.5); MEAN CORPUSCULAR VOLUME 91.1 FL (78-98); MEAN PLATELET VOLUME 8.6 FL (7.4-10.4); MONOCYTES # (AUTO) 0.3 X10'3 (0-0.9); MONOCYTES % (AUTO) 5.4 % (2-12); NEUTROPHILS # (AUTO) 4.4 X10'3 (1.8-7.7); NEUTROPHILS % (AUTO) 73.8 % (42-75); PLATELET COUNT 224 X10'3 (140-440); RED BLOOD COUNT 3.78 X10'6 (4.20-5.60); RED CELL DISTRIBUTION WIDTH 14.2 % (11.5-14.5); WHITE BLOOD COUNT 5.9 X10'3 (4.5-11.0)
[2023-07-23 06:27] LABS: GLUCOSE 135 MG/DL (70-104)
[2023-07-23 06:28] LABS: ALANINE AMINOTRANSFERASE 31 U/L (12-78); ALBUMIN/GLOBULIN RATIO 0.9 (1.1-1.5); ALKALINE PHOSPHATASE 86 IU/L (46-116); ANION GAP 5 (8-16); ASPARTATE AMINO TRANSFERASE 30 U/L (10-37); BILIRUBIN,TOTAL 0.5 MG/DL (0.1-1.0); BLOOD UREA NITROGEN 15 MG/DL (7-18); BUN/CREATININE RATIO 16.9 (10.0-20.0); CALCIUM 8.8 MG/DL (8.5-10.1); CHLORIDE 106 MMOL/L (99-107); CREATININE 0.89 MG/DL (0.40-0.90); POTASSIUM 3.9 MMOL/L (3.5-5.1); SODIUM 137 MMOL/L (135-145); TOTAL PROTEIN 6.4 G/DL (6.4-8.2); eCRCL 62 ML/MIN; eGFR 66 ML/MIN
[2023-07-23] MEDS: NYSTATIN 30 GM POWDER TP SCH ×2 (08:00→20:22)
[2023-07-23] MEDS: K and/or MAG REPLACEMENT MC SCH ×2 (08:00→20:00)
[2023-07-23 08:55] VITALS: RESP 18
[2023-07-23] MEDS: gabapentin 400mg capsule PO SCH ×2 (09:07→20:09)
[2023-07-23] MEDS: docusate sod 100mg capsule PO SCH ×2 (09:07→20:00)
[2023-07-23] MEDS: hydrOXYzine 25 MG tablet PO SCH (09:07)
[2023-07-23] MEDS: metoprolol succinate 25mg (24-HOUR) SR. Tablet PO SCH (09:08)
[2023-07-23] MEDS: lisinopril 20mg tablet PO SCH (09:08)
[2023-07-23] MEDS: heparin, porcine 5000 units/ml vial SQ SCH ×2 (09:09→20:14)
[2023-07-23] MEDS ORDERED: LidoCAINE 2% Topical Jelly 11mL syringe MM ONE (09:30)
[2023-07-23 10:00] VITALS: BP 137/66; PULSE 75; RESP 18; TEMP 98.8; O2SAT 95
[2023-07-23] MEDS ORDERED: VANCOMYCIN LEVEL IV ONE (10:30)
[2023-07-23] MEDS: piperacillin/tazo 3.375gm/50ml 50 ML IV SCH ×2 (11:58→17:34)
[2023-07-23] MEDS: morphine 4 MG/ML inj SYRINge IV PRN (13:20)
[2023-07-23] MEDS: vancomycin inj 500 MG in normal saline 100ml IV soln 100 ML IV SCH ×2 (15:21→20:19)
[2023-07-23 18:00] VITALS: BP 140/70; PULSE 71; RESP 12; TEMP 98.5; O2SAT 97
--- NOTE | 2023-07-23 18:15 | NUR ---
Patient in room ORTHO 4006. I have received report from JOSE Wolf and had the opportunity to ask questions and assume patient care. Patient sitting on side of bed eating dinner, no concerns at this time. I will continue to monitor.
[2023-07-23] MEDS: traZODone 50mg tablet PO SCH (20:08)
[2023-07-23] MEDS: QUEtiapine 25mg tablet PO SCH (20:09)
[2023-07-23] MEDS: morphine 2 MG/ML inj. syringe IV PRN (20:11)
[2023-07-23 22:00] VITALS: BP 112/57; PULSE 67; RESP 16; TEMP 98.6; O2SAT 95
[2023-07-23 22:20] VITALS: RESP 12; O2SAT 97
[2023-07-24] MEDS: piperacillin/tazo 3.375gm/50ml 50 ML IV SCH ×2 (00:09→08:28)
[2023-07-24] MEDS: HYDROcodone/acetaminophen 10/325mg tab PO PRN ×3 (02:04→15:09)
[2023-07-24] MEDS: vancomycin inj 500 MG in normal saline 100ml IV soln 100 ML IV SCH (04:17)
[2023-07-24] MEDS: morphine 2 MG/ML inj. syringe IV PRN (04:17)
[2023-07-24 06:00] VITALS: BP 133/67; PULSE 56; RESP 16; TEMP 98.9; O2SAT 96
--- NOTE | 2023-07-24 06:20 | NUR ---
Problems reprioritized. Patient report given, questions answered & plan of care reviewed with .
--- NOTE | 2023-07-24 06:25 | NUR ---
Patient in room ORTHO 4006. I have received report from Emma GARCIA and had the opportunity to ask questions and assume patient care.
[2023-07-24 08:00] VITALS: RESP 16; O2SAT 96
[2023-07-24] MEDS: K and/or MAG REPLACEMENT MC SCH (08:00)
[2023-07-24] MEDS: docusate sod 100mg capsule PO SCH (08:00)
[2023-07-24] MEDS: NYSTATIN 30 GM POWDER TP SCH (08:00)
[2023-07-24] MEDS: gabapentin 400mg capsule PO SCH (08:15)
[2023-07-24] MEDS: metoprolol succinate 25mg (24-HOUR) SR. Tablet PO SCH (08:15)
[2023-07-24] MEDS: hydrOXYzine 25 MG tablet PO SCH (08:15)
[2023-07-24] MEDS: lisinopril 20mg tablet PO SCH (08:15)
[2023-07-24] MEDS: heparin, porcine 5000 units/ml vial SQ SCH (08:19)
[2023-07-24 11:00] VITALS: BP 169/77; PULSE 59; RESP 18; TEMP 98.1; O2SAT 96
[2023-07-24] MEDS ORDERED: VANCOMYCIN LEVEL IV ONE (11:30)
[2023-07-24 12:07] LABS: VANCOMYCIN,TROUGH 16.8 ug/mL (10.0-20.0)
[2023-07-24 12:30] LABS: ALANINE AMINOTRANSFERASE 31 U/L (12-78); ALBUMIN 2.8 G/DL (3.4-5.0); ALBUMIN/GLOBULIN RATIO 0.8 (1.1-1.5); ALKALINE PHOSPHATASE 81 IU/L (46-116); ANION GAP 4 (8-16); ASPARTATE AMINO TRANSFERASE 30 U/L (10-37); BILIRUBIN,TOTAL 0.2 MG/DL (0.1-1.0); BLOOD UREA NITROGEN 11 MG/DL (7-18); BUN/CREATININE RATIO 14.3 (10.0-20.0); CALCIUM 9.1 MG/DL (8.5-10.1); CHLORIDE 108 MMOL/L (99-107); CREATININE 0.77 MG/DL (0.40-0.90); GLUCOSE 149 MG/DL (70-104); POTASSIUM 3.9 MMOL/L (3.5-5.1); SODIUM 140 MMOL/L (135-145); TOTAL CARBON DIOXIDE 27.6 MMOL/L (24-32); TOTAL PROTEIN 6.4 G/DL (6.4-8.2); eCRCL 72 ML/MIN; eGFR 78 ML/MIN
[2023-07-24 13:03] LABS: BASOPHILS % (AUTO) 0.5 % (0-1); EOSINOPHILS # (AUTO) 0.2 X10'3 (0-0.9); EOSINOPHILS % (AUTO) 5.7 % (0-6); HEMATOCRIT 33.8 % (35.0-45.0); HEMOGLOBIN 11.6 g/dl (12.0-16.0); LYMPHOCYTES # (AUTO) 1.4 X10'3 (1.1-4.8); LYMPHOCYTES % (AUTO) 38.6 % (21-51); MEAN CORPUSCULAR HEMOGLOBIN 31.3 PG (27.0-31.0); MEAN CORPUSCULAR HGB CONC 34.2 g/dL (33.0-36.5); MEAN CORPUSCULAR VOLUME 91.6 FL (78-98); MEAN PLATELET VOLUME 8.7 FL (7.4-10.4); MONOCYTES # (AUTO) 0.4 X10'3 (0-0.9); MONOCYTES % (AUTO) 10.2 % (2-12); NEUTROPHILS # (AUTO) 1.6 X10'3 (1.8-7.7); PLATELET COUNT 206 X10'3 (140-440); RED BLOOD COUNT 3.69 X10'6 (4.20-5.60); WHITE BLOOD COUNT 3.6 X10'3 (4.5-11.0)
[2023-07-24] MEDS ORDERED: SULF1TAB49 PO (13:46)
[2023-07-24] MEDS ORDERED: HYDR50TA4 PO (13:46)
--- NOTE | 2023-07-24 14:25 | NUR ---
PAGER ID: [phone] MESSAGE: [phone] Marina Mathis- conflict with Cipro during discharge papers. Pls advise? Marco curran [phone]
[2023-07-24] MEDS ORDERED: CIPR-259 PO (14:47)
--- NOTE | 2023-07-24 15:00 | NUR ---
I have reviewed and agree with interventions, assessments, and documentation by Rocio Kiser LVN.
[2023-07-24 15:09] VITALS: RESP 16
--- NOTE | 2023-07-24 15:33 | NUR ---
Dr. Wells states that she needs to call her pcp for pain meds
--- NOTE | 2023-07-24 15:33 | NUR ---
PAGER ID: [phone] MESSAGE: [phone] Del M- pt states she doesn't have pain pills or gabapentin. can you do a 5day supply or something? dexter curran [phone]
--- NOTE | 2023-07-24 15:35 | NUR ---
Dr. Wells called back and stated that she sent pain medication and gabapentin to patient pharmacy
[2023-07-24] MEDS ORDERED: HYDR-3965 PO (15:39)
[2023-07-24] MEDS ORDERED: GABA-535 PO (15:43)
--- NOTE | 2023-07-24 15:50 | NUR ---
Patient was discharged home today with family. Patient does have a outpatient wound clinic appt set for Sat07/26/23 @1:45. All discharge instructions were explained to patient and all questions were answered. IV removed from patient and all belongings were gather. Wound dressing changed before discharging. Patient was alert and appropriate for discharge. Patient wheeled downstairs into private vehicle.
== END 2023-07-24 15:50 | disposition home or self-care (01) | DRG 383 ==
LOC: ER 10:47 → ED HOLD 19:06 → ORTHO 4S 22:03 → UNDODISIN 07-24 12:50
PROVIDERS: ADMIT Internal Medicine; ATTEND Internal Medicine
DX: L03.115 Cellulitis of right lower limb (principal); L97.909 Non-pressure chronic ulcer of unspecified part of unspecified lower leg with unspecified severity; F32.A Depression, unspecified; I10 Essential (primary) hypertension; W57.XXXA Bitten or stung by nonvenomous insect and other nonvenomous arthropods, initial encounter; J45.909 Unspecified asthma, uncomplicated; Z78.9 Other specified health status; Z79.899 Other long term (current) drug therapy; Z82.3 Family history of stroke; Z82.49 Family history of ischemic heart disease and other diseases of the circulatory system; Z86.73 Personal history of transient ischemic attack (TIA), and cerebral infarction without residual deficits; Y93.89 Activity, other specified; Y92.89 Other specified places as the place of occurrence of the external cause; Y99.8 Other external cause status
CPT/HCPCS: 36415; 71045; 80053; 80202; 81001; 81025; 83605; 83735; 84145; 85025; 87040; 87081; 90686; 93005; 99285; A4349; A6196; A6250; A6253; A6258; A6446; A6449; G0378; J1644; J1885; J2185; J2270; J2405; J2543; J3370; J3490; J7030; J7040; Q0177

== ENCOUNTER 2023-09-16 | Emergency (ER) | payer MEDICAID ==
[~2023-09-16] VITALS: Ht 162.6 cm; Wt 119.5 kg
[~2023-09-16] MED LIST changes: +ACET-1017 PO; +ALBU6.7H14 INH; +CIPR-259 PO; -DULO20CA18 PO; +HYDR50TA4 PO; -LISI20TA28 PO; +LISI40TA13 PO; -METO-411 PO; +METO100T7 PO; +QUET50TA PO
[2023-09-16] MEDS ORDERED: iohexol 300mg/ml 100ml inj. ONE (01:02)
[2023-09-16] MEDS ORDERED: vancomycin/NS 1 GM ADD-VANTAGE 250 ML X 1 DOSE IV ONE (01:05)
[2023-09-16] MEDS ORDERED: HYDROcodone/acetaminophen 10/325mg tab PO ONE (01:45)
[2023-09-16 01:48] LABS: BASOPHILS % (AUTO) 0.4 % (0-1); EOSINOPHILS # (AUTO) 0.2 X10'3 (0-0.9); EOSINOPHILS % (AUTO) 2.7 % (0-6); HEMATOCRIT 38.2 % (35.0-45.0); HEMOGLOBIN 13.1 g/dl (12.0-16.0); LYMPHOCYTES # (AUTO) 3.6 X10'3 (1.1-4.8); LYMPHOCYTES % (AUTO) 46.2 % (21-51); MEAN CORPUSCULAR HEMOGLOBIN 31.9 PG (27.0-31.0); MEAN CORPUSCULAR HGB CONC 34.4 g/dL (33.0-36.5); MEAN CORPUSCULAR VOLUME 92.7 FL (78-98); MEAN PLATELET VOLUME 8.9 FL (7.4-10.4); MONOCYTES # (AUTO) 0.5 X10'3 (0-0.9); MONOCYTES % (AUTO) 6.5 % (2-12); NEUTROPHILS # (AUTO) 3.4 X10'3 (1.8-7.7); NEUTROPHILS % (AUTO) 44.2 % (42-75); PLATELET COUNT 238 X10'3 (140-440); RED BLOOD COUNT 4.12 X10'6 (4.20-5.60); RED CELL DISTRIBUTION WIDTH 14.3 % (11.5-14.5); WHITE BLOOD COUNT 7.8 X10'3 (4.5-11.0)
[2023-09-16] MEDS ORDERED: gabapentin 300mg capsule PO ONE (01:55)
[2023-09-16] MEDS ORDERED: bacitracin 15gm ointment TP ONE (01:55)
[2023-09-16] MEDS ORDERED: BACI28.42 TOP (01:58)
[2023-09-16] MEDS ORDERED: GABA-535 PO (01:58)
[2023-09-16] MEDS ORDERED: HYDR-3965 PO (01:58)
[2023-09-16 02:02] LABS: ALANINE AMINOTRANSFERASE 24 U/L (12-78); ALBUMIN 3.4 G/DL (3.4-5.0); ALBUMIN/GLOBULIN RATIO 0.9 (1.1-1.5); ALKALINE PHOSPHATASE 135 IU/L (46-116); ANION GAP 8 (8-16); ASPARTATE AMINO TRANSFERASE 26 U/L (10-37); BILIRUBIN,TOTAL 0.2 MG/DL (0.1-1.0); BLOOD UREA NITROGEN 17 MG/DL (7-18); BUN/CREATININE RATIO 18.7 (10.0-20.0); CALCIUM 8.6 MG/DL (8.5-10.1); CHLORIDE 109 MMOL/L (99-107); CREATININE 0.91 MG/DL (0.40-0.90); MAGNESIUM 1.9 MG/DL (1.5-2.4); POTASSIUM 3.1 MMOL/L (3.5-5.1); SODIUM 144 MMOL/L (135-145); TOTAL CARBON DIOXIDE 27.3 MMOL/L (24-32); TOTAL PROTEIN 7.2 G/DL (6.4-8.2); eCRCL 61 ML/MIN; eGFR 64 ML/MIN
[2023-09-16 02:09] LABS: GLUCOSE 126 MG/DL (70-104)
[2023-09-16] MEDS ORDERED: potassium Cl 20 mEq SR tablet PO STA (02:14)
[2023-09-16 03:20] VITALS: BP 147/87; PULSE 63; RESP 16; TEMP 98.6; O2SAT 97
== END 2023-09-16 03:22 | disposition home or self-care (01) ==
LOC: ER
DX: G62.9 Polyneuropathy, unspecified (principal); E11.622 Type 2 diabetes mellitus with other skin ulcer
CPT/HCPCS: 36415; 71045; 80053; 83605; 83735; 84145; 85025; 87040; 93005; 96365; 99285; J3370; J3490; Q9967; A6446; A6449

== ENCOUNTER 2023-10-22 15:32 | Emergency (ER) | payer MEDICAID ==
[~2023-10-22] VITALS: Ht 170.2 cm; Wt 115.7 kg
[~2023-10-22 15:32] MED LIST changes: +BACI28.42 TOP
[2023-10-22] MEDS ORDERED: ondansetron 4mg rapidly disintigrating tab PO ONE (16:25)
[2023-10-22 17:04] LABS: BILIRUBIN,URINE NEGATIVE (Neg); CLARITY,URINE CLOUDY (Clear); COLOR,URINE YELLOW (Yellow); GLUCOSE, URINE NEGATIVE (Neg); KETONES,URINE NEGATIVE (Neg); LEUKOCYTE ESTERASE ,URINE NEGATIVE (Neg); NITRITES, URINE NEGATIVE (Neg); OCCULT BLOOD,URINE TRACE-INTACT (Neg); PROTEIN,URINE 30 mg/dl (Neg); UROBILINOGEN,URINE 0.2 E.U/dL (0.2-1.0)
[2023-10-22 17:07] LABS: UA COLLECTION TYPE CLN CATCH MIDSTREAM
[2023-10-22 17:10] LABS: BACTERIA,URINE 2+ /HPF (Neg); MUCUS STRANDS MANY /LPF (Neg); SQUAMOUS EPITHELIAL CELL,UR MANY /LPF (FEW); WBC,URINE 0-4 /HPF (0-4)
[2023-10-22 19:16] LABS: BASOPHILS # (AUTO) 0.1 X10'3 (0-0.2); BASOPHILS % (AUTO) 1.4 % (0-1); EOSINOPHILS # (AUTO) 0.2 X10'3 (0-0.9); EOSINOPHILS % (AUTO) 2.6 % (0-6); HEMATOCRIT 41.3 % (35.0-45.0); HEMOGLOBIN 14.1 g/dl (12.0-16.0); LYMPHOCYTES % (AUTO) 39.7 % (21-51); MEAN CORPUSCULAR HEMOGLOBIN 31.6 PG (27.0-31.0); MEAN CORPUSCULAR HGB CONC 34.2 g/dL (33.0-36.5); MEAN CORPUSCULAR VOLUME 92.2 FL (78-98); MEAN PLATELET VOLUME 8.7 FL (7.4-10.4); MONOCYTES # (AUTO) 0.5 X10'3 (0-0.9); NEUTROPHILS # (AUTO) 3.8 X10'3 (1.8-7.7); NEUTROPHILS % (AUTO) 50.3 % (42-75); PLATELET COUNT 259 X10'3 (140-440); RED BLOOD COUNT 4.48 X10'6 (4.20-5.60); RED CELL DISTRIBUTION WIDTH 13.8 % (11.5-14.5); WHITE BLOOD COUNT 7.5 X10'3 (4.5-11.0)
[2023-10-22 19:37] LABS: ALANINE AMINOTRANSFERASE 47 U/L (12-78); ALBUMIN 4.2 G/DL (3.4-5.0); ALKALINE PHOSPHATASE 98 IU/L (46-116); ANION GAP 11 (8-16); ASPARTATE AMINO TRANSFERASE 37 U/L (10-37); BILIRUBIN,TOTAL 0.3 MG/DL (0.1-1.0); BLOOD UREA NITROGEN 13 MG/DL (7-18); BUN/CREATININE RATIO 15.7 (10.0-20.0); CALCIUM 9.2 MG/DL (8.5-10.1); CHLORIDE 107 MMOL/L (99-107); CREATININE 0.83 MG/DL (0.40-0.90); GLUCOSE 103 MG/DL (70-104); POTASSIUM 3.9 MMOL/L (3.5-5.1); SODIUM 143 MMOL/L (135-145); TOTAL CARBON DIOXIDE 24.8 MMOL/L (24-32); TOTAL PROTEIN 8.3 G/DL (6.4-8.2); eCRCL 75 ML/MIN; eGFR 72 ML/MIN
[2023-10-22] MEDS ORDERED: oxyCODONE/APAP 5-325mg tablet PO ONE (19:55)
[2023-10-22 20:22] VITALS: BP 188/106; PULSE 78; RESP 20; TEMP 99.3; O2SAT 99
== END 2023-10-22 20:25 | disposition home or self-care (01) ==
LOC: ER 15:32
DX: B34.9 Viral infection, unspecified (principal); Z20.822 Contact with and (suspected) exposure to COVID-19; I10 Essential (primary) hypertension; J45.909 Unspecified asthma, uncomplicated; Z90.49 Acquired absence of other specified parts of digestive tract; Z98.891 History of uterine scar from previous surgery; Z91.041 Radiographic dye allergy status; Z88.8 Allergy status to other drugs, medicaments and biological substances; Z79.2 Long term (current) use of antibiotics; Z79.899 Other long term (current) drug therapy
CPT/HCPCS: 36415; 80053; 81001; 85025; 87502; 87503; 87811; 99283; J7030; A6258; A6446; A6449

== ENCOUNTER 2023-12-08 10:34 | Inpatient (IN) | payer MEDICAID ==
[~2023-12-08] VITALS: Ht 162.6 cm; Wt 113.6 kg
[2023-12-08] MEDS: HYDROcodone/acetaminophen 10/325mg tab PO ONE (11:15)
[2023-12-08 12:30] LABS: BASOPHILS % (AUTO) 0.6 % (0-1); EOSINOPHILS # (AUTO) 0.3 X10'3 (0-0.9); EOSINOPHILS % (AUTO) 3.5 % (0-6); HEMATOCRIT 39.6 % (35.0-45.0); HEMOGLOBIN 13.4 g/dl (12.0-16.0); LYMPHOCYTES % (AUTO) 27.3 % (21-51); MEAN CORPUSCULAR HEMOGLOBIN 31.4 PG (27.0-31.0); MEAN CORPUSCULAR HGB CONC 33.9 g/dL (33.0-36.5); MEAN CORPUSCULAR VOLUME 92.5 FL (78-98); MEAN PLATELET VOLUME 8.5 FL (7.4-10.4); MONOCYTES # (AUTO) 0.5 X10'3 (0-0.9); MONOCYTES % (AUTO) 6.2 % (2-12); NEUTROPHILS # (AUTO) 4.6 X10'3 (1.8-7.7); NEUTROPHILS % (AUTO) 62.4 % (42-75); PLATELET COUNT 231 X10'3 (140-440); RED BLOOD COUNT 4.28 X10'6 (4.20-5.60); RED CELL DISTRIBUTION WIDTH 13.7 % (11.5-14.5); WHITE BLOOD COUNT 7.4 X10'3 (4.5-11.0)
[2023-12-08 12:34] LABS: ALBUMIN 3.7 G/DL (3.4-5.0); ANION GAP 11 (8-16); BLOOD UREA NITROGEN 14 MG/DL (7-18); BUN/CREATININE RATIO 18.9 (10.0-20.0); CALCIUM 8.2 MG/DL (8.5-10.1); CHLORIDE 108 MMOL/L (99-107); CREATININE 0.74 MG/DL (0.40-0.90); GLUCOSE 146 MG/DL (70-104); MAGNESIUM 1.9 MG/DL (1.5-2.4); POTASSIUM 4.3 MMOL/L (3.5-5.1); SODIUM 144 MMOL/L (135-145); TOTAL CARBON DIOXIDE 25.2 MMOL/L (24-32); eCRCL 75 ML/MIN; eGFR 82 ML/MIN
[2023-12-08] MEDS ORDERED: potassium Cl 20 mEq SR tablet PO PRN ×2 (15:10)
[2023-12-08] MEDS ORDERED: magnesium Cl slow-release 64mg tablet PO PRN (15:10)
[2023-12-08] MEDS ORDERED: potassium Cl 40MEQ/1/2NS 520ml 520 ML IV PRN (15:10)
[2023-12-08] MEDS ORDERED: magnesium 4gm in 100ml NS 100 ML IV PRN (15:10)
[2023-12-08] MEDS ORDERED: magnesium 2GM in 50ml NS 50 ML IV PRN (15:10)
[2023-12-08 16:52] LABS: BILIRUBIN,URINE NEGATIVE (Neg); CLARITY,URINE CLOUDY (Clear); COLOR,URINE YELLOW (Yellow); GLUCOSE, URINE NEGATIVE (Neg); KETONES,URINE NEGATIVE (Neg); LEUKOCYTE ESTERASE ,URINE NEGATIVE (Neg); NITRITES, URINE NEGATIVE (Neg); OCCULT BLOOD,URINE NEGATIVE (Neg); PROTEIN,URINE NEGATIVE (Neg); UROBILINOGEN,URINE 0.2 E.U/dL (0.2-1.0)
[2023-12-08 16:53] LABS: UA COLLECTION TYPE CLN CATCH MIDSTREAM; URINE HCG NEGATIVE (NEG)
[2023-12-08 17:01] LABS: HYALINE CASTS 0-3 /LPF (NEGATIVE); MUCUS STRANDS MANY /LPF (Neg); SQUAMOUS EPITHELIAL CELL,UR MANY /LPF (FEW)
[2023-12-08 17:02] LABS: BACTERIA,URINE 1+ /HPF (Neg); RBC,URINE 0-2 /HPF (0-2); WBC,URINE 0-4 /HPF (0-4)
[2023-12-08] MEDS: HYDROcodone/acetaminophen 5mg/325mg tablet PO PRN (17:38)
[2023-12-08] MEDS: vancomycin/NS 1 GM ADD-VANTAGE 250 ML IV SCH (18:12)
[2023-12-08] MEDS: K and/or MAG REPLACEMENT MC SCH (20:00)
[2023-12-08] MEDS: morphine 2 MG/ML inj. syringe IV PRN (21:07)
[2023-12-08] MEDS: cefepime 1GM/NS ADD-VANTAGE 100 ML IV SCH (21:09)
[2023-12-09] MEDS: labetalol 20mg/4ml (5mg/ml) syringe IV ONE (00:19)
[2023-12-09] MEDS: morphine 2 MG/ML inj. syringe IV PRN (00:37)
[2023-12-09] MEDS: quetiapine 100mg tablet PO SCH (02:30)
[2023-12-09 03:45] LABS: ALBUMIN 3.5 G/DL (3.4-5.0); ANION GAP 9 (8-16); BLOOD UREA NITROGEN 15 MG/DL (7-18); BUN/CREATININE RATIO 17.6 (10.0-20.0); CALCIUM 8.3 MG/DL (8.5-10.1); CHLORIDE 107 MMOL/L (99-107); CREATININE 0.85 MG/DL (0.40-0.90); GLUCOSE 163 MG/DL (70-104); MAGNESIUM 1.8 MG/DL (1.5-2.4); POTASSIUM 3.8 MMOL/L (3.5-5.1); SODIUM 139 MMOL/L (135-145); TOTAL CARBON DIOXIDE 23.3 MMOL/L (24-32); eCRCL 65 ML/MIN; eGFR 70 ML/MIN
[2023-12-09 04:06] LABS: BASOPHILS % (AUTO) 0.2 % (0-1); EOSINOPHILS # (AUTO) 0.4 X10'3 (0-0.9); EOSINOPHILS % (AUTO) 4.5 % (0-6); HEMATOCRIT 36.6 % (35.0-45.0); HEMOGLOBIN 12.5 g/dl (12.0-16.0); LYMPHOCYTES # (AUTO) 1.5 X10'3 (1.1-4.8); LYMPHOCYTES % (AUTO) 18.8 % (21-51); MEAN CORPUSCULAR HEMOGLOBIN 31.6 PG (27.0-31.0); MEAN CORPUSCULAR HGB CONC 34.2 g/dL (33.0-36.5); MEAN CORPUSCULAR VOLUME 92.6 FL (78-98); MEAN PLATELET VOLUME 8.8 FL (7.4-10.4); MONOCYTES # (AUTO) 0.6 X10'3 (0-0.9); MONOCYTES % (AUTO) 7.4 % (2-12); NEUTROPHILS # (AUTO) 5.3 X10'3 (1.8-7.7); NEUTROPHILS % (AUTO) 69.1 % (42-75); PLATELET COUNT 210 X10'3 (140-440); RED BLOOD COUNT 3.96 X10'6 (4.20-5.60); RED CELL DISTRIBUTION WIDTH 13.4 % (11.5-14.5); WHITE BLOOD COUNT 7.7 X10'3 (4.5-11.0)
[2023-12-09] MEDS: metroNIDAZOLE 500mg tablet PO SCH (12:50)
[2023-12-09] MEDS: VANCOMYCIN LEVEL IV ONE (15:40)
[2023-12-09] MEDS: VANCOMYCIN 750MG IV in NS 250 ML IV SCH (17:10)
[2023-12-09] MEDS: cefepime 2g/NS 100ml ADVANTAGE 100 ML IV SCH (20:15)
[2023-12-10] VITALS (8 sets, daily range): BP systolic 135–206; BP diastolic 69–115; PULSE 80–98; RESP 16–20; TEMP 97.7–98.2; O2SAT 94–98
[2023-12-10 07:22] LABS: BASOPHILS % (AUTO) 0.4 % (0-1); EOSINOPHILS # (AUTO) 0.4 X10'3 (0-0.9); EOSINOPHILS % (AUTO) 8.3 % (0-6); HEMATOCRIT 34.6 % (35.0-45.0); LYMPHOCYTES # (AUTO) 1.2 X10'3 (1.1-4.8); MEAN CORPUSCULAR HEMOGLOBIN 31.8 PG (27.0-31.0); MEAN CORPUSCULAR HGB CONC 34.7 g/dL (33.0-36.5); MEAN CORPUSCULAR VOLUME 91.7 FL (78-98); MONOCYTES # (AUTO) 0.3 X10'3 (0-0.9); MONOCYTES % (AUTO) 7.6 % (2-12); NEUTROPHILS # (AUTO) 2.5 X10'3 (1.8-7.7); NEUTROPHILS % (AUTO) 56.7 % (42-75); PLATELET COUNT 188 X10'3 (140-440); RED BLOOD COUNT 3.78 X10'6 (4.20-5.60); RED CELL DISTRIBUTION WIDTH 13.4 % (11.5-14.5); WHITE BLOOD COUNT 4.3 X10'3 (4.5-11.0)
[2023-12-10 07:28] LABS: ALBUMIN 3.3 G/DL (3.4-5.0); ANION GAP 9 (8-16); BLOOD UREA NITROGEN 10 MG/DL (7-18); BUN/CREATININE RATIO 15.9 (10.0-20.0); CALCIUM 8.5 MG/DL (8.5-10.1); CHLORIDE 108 MMOL/L (99-107); CREATININE 0.63 MG/DL (0.40-0.90); GLUCOSE 132 MG/DL (70-104); MAGNESIUM 2.1 MG/DL (1.5-2.4); POTASSIUM 3.6 MMOL/L (3.5-5.1); SODIUM 140 MMOL/L (135-145); TOTAL CARBON DIOXIDE 23.4 MMOL/L (24-32); eCRCL 88 ML/MIN; eGFR > 90 ML/MIN
[2023-12-10] MEDS ORDERED: non-formulary drug (Acetaminophen 1 TAB) PO PRN (10:00)
[2023-12-10] MEDS ORDERED: traZODone 50mg tablet PO PRN (10:00)
[2023-12-10] MEDS ORDERED: HYDROcodone/acetaminophen 5mg/325mg tablet PO PRN (10:00)
[2023-12-10] MEDS ORDERED: QUEtiapine 25mg tablet PO PRN (10:00)
[2023-12-10] MEDS: lisinopril 20mg tablet PO SCH (10:48)
[2023-12-10] MEDS: HYDROchlorothiazide 25mg tablet PO SCH (10:48)
[2023-12-10] MEDS: metoprolol succinate 25mg (24-HOUR) SR. Tablet PO SCH (10:49)
[2023-12-10] MEDS: gabapentin 400mg capsule PO SCH (16:20)
[2023-12-10] MEDS: hydrALAZINE 20mg/ml inj. IV SCH (16:23)
[2023-12-10] MEDS: VANCOMYCIN LEVEL IJ ONE (16:30)
[2023-12-10] MEDS: ondansetron/PF 4mg/2ml inj IV PRN (18:44)
[2023-12-10] MEDS ORDERED: hydrALAZINE 20mg/ml inj. IV SCH (20:00)
[2023-12-10] MEDS: acetaminophen 325mg tablet PO PRN (20:36)
[2023-12-10] MEDS: temazepam 15mg capsule PO PRN (20:36)
[2023-12-10] MEDS: albuterol 2.5 MG/3 ML nebule NEB PRN (20:46)
[2023-12-11] VITALS (13 sets, daily range): BP systolic 120–186; BP diastolic 63–104; PULSE 80–99; RESP 12–22; TEMP 97.5–100.4; O2SAT 91–98
[2023-12-11] MEDS: HYDROcodone/acetaminophen 10/325mg tab PO PRN (00:11)
[2023-12-11 06:48] LABS: BASOPHILS % (AUTO) 0.3 % (0-1); EOSINOPHILS # (AUTO) 0.3 X10'3 (0-0.9); EOSINOPHILS % (AUTO) 4.9 % (0-6); HEMATOCRIT 35.5 % (35.0-45.0); HEMOGLOBIN 12.1 g/dl (12.0-16.0); LYMPHOCYTES # (AUTO) 1.8 X10'3 (1.1-4.8); LYMPHOCYTES % (AUTO) 26.3 % (21-51); MEAN CORPUSCULAR HEMOGLOBIN 31.7 PG (27.0-31.0); MEAN CORPUSCULAR VOLUME 93.1 FL (78-98); MEAN PLATELET VOLUME 8.4 FL (7.4-10.4); MONOCYTES # (AUTO) 0.6 X10'3 (0-0.9); MONOCYTES % (AUTO) 8.5 % (2-12); PLATELET COUNT 208 X10'3 (140-440); RED BLOOD COUNT 3.81 X10'6 (4.20-5.60); RED CELL DISTRIBUTION WIDTH 13.9 % (11.5-14.5); WHITE BLOOD COUNT 6.7 X10'3 (4.5-11.0)
[2023-12-11 07:09] LABS: ALBUMIN 3.3 G/DL (3.4-5.0); ANION GAP 3 (8-16); BLOOD UREA NITROGEN 11 MG/DL (7-18); BUN/CREATININE RATIO 12.2 (10.0-20.0); CALCIUM 7.9 MG/DL (8.5-10.1); CHLORIDE 107 MMOL/L (99-107); GLUCOSE 132 MG/DL (70-104); MAGNESIUM 1.9 MG/DL (1.5-2.4); POTASSIUM 4.1 MMOL/L (3.5-5.1); SODIUM 142 MMOL/L (135-145); TOTAL CARBON DIOXIDE 32.5 MMOL/L (24-32); eCRCL 62 ML/MIN; eGFR 65 ML/MIN
[2023-12-11] MEDS ORDERED: lisinopril 20mg tablet PO SCH (08:00)
[2023-12-11] MEDS ORDERED: HYDROchlorothiazide 25mg tablet PO SCH (08:00)
[2023-12-11] MEDS ORDERED: metoprolol succinate 25mg (24-HOUR) SR. Tablet PO SCH (08:00)
[2023-12-11] MEDS ORDERED: HYDROmorphone inj. 0.5 MG/0.5 ML DISP.SYRIN IV PRN (09:25)
[2023-12-11] MEDS: HYDROmorphone 1 mg/ml syringe IV PRN (09:38)
[2023-12-11] MEDS: LIDOcaine 2% jelly 6ml syringe ***for topical use only MM SCH (09:40)
[2023-12-11] MEDS: VANCOMYCIN 750MG IV in NS 250 ML IV SCH (13:46)
[2023-12-11] MEDS ORDERED: pneumococcal 23-VAL P-sac vacc 25 mcg/0.5ml vial IMVAC ONE (14:00)
[2023-12-12 02:00] VITALS: BP 145/75; PULSE 93; RESP 19; TEMP 97.6; O2SAT 94
[2023-12-12 06:45] VITALS: BP 139/83; PULSE 82; RESP 15; TEMP 99; O2SAT 96
[2023-12-12 06:50] LABS: BASOPHILS % (AUTO) 0.4 % (0-1); EOSINOPHILS # (AUTO) 0.3 X10'3 (0-0.9); EOSINOPHILS % (AUTO) 4.7 % (0-6); HEMATOCRIT 33.4 % (35.0-45.0); HEMOGLOBIN 11.7 g/dl (12.0-16.0); LYMPHOCYTES # (AUTO) 1.7 X10'3 (1.1-4.8); LYMPHOCYTES % (AUTO) 29.9 % (21-51); MEAN CORPUSCULAR HEMOGLOBIN 32.1 PG (27.0-31.0); MEAN CORPUSCULAR VOLUME 91.8 FL (78-98); MEAN PLATELET VOLUME 8.1 FL (7.4-10.4); MONOCYTES # (AUTO) 0.5 X10'3 (0-0.9); MONOCYTES % (AUTO) 8.2 % (2-12); NEUTROPHILS # (AUTO) 3.2 X10'3 (1.8-7.7); NEUTROPHILS % (AUTO) 56.8 % (42-75); PLATELET COUNT 210 X10'3 (140-440); RED BLOOD COUNT 3.64 X10'6 (4.20-5.60); RED CELL DISTRIBUTION WIDTH 13.7 % (11.5-14.5); WHITE BLOOD COUNT 5.7 X10'3 (4.5-11.0)
[2023-12-12 07:10] LABS: ALBUMIN 3.2 G/DL (3.4-5.0); ANION GAP 5 (8-16); BLOOD UREA NITROGEN 9 MG/DL (7-18); BUN/CREATININE RATIO 11.5 (10.0-20.0); CHLORIDE 106 MMOL/L (99-107); CREATININE 0.78 MG/DL (0.40-0.90); GLUCOSE 150 MG/DL (70-104); MAGNESIUM 2.1 MG/DL (1.5-2.4); POTASSIUM 3.6 MMOL/L (3.5-5.1); SODIUM 142 MMOL/L (135-145); TOTAL CARBON DIOXIDE 31.5 MMOL/L (24-32); eCRCL 71 ML/MIN; eGFR 77 ML/MIN
[2023-12-12] MEDS: gentamicin 0.1% topical ointment 15gm TP SCH (09:00)
[2023-12-12] MEDS: pneumococcal 23-VAL P-sac vacc 25 mcg/0.5ml vial IMVAC ONE (10:00)
[2023-12-12 10:45] VITALS: BP 115/48; PULSE 71; RESP 16; TEMP 97.9; O2SAT 95
[2023-12-12 11:14] VITALS: PULSE 72; RESP 16; O2SAT 94
[2023-12-12 11:20] VITALS: PULSE 74; RESP 18
[2023-12-12] MEDS ORDERED: SULF1TAB49 PO (12:11)
[2023-12-12] MEDS ORDERED: CIPR-202 PO (12:11)
[2023-12-12] MEDS: VANCOMYCIN LEVEL IJ ONE (12:54)
[2023-12-12 15:00] VITALS: BP 128/55; PULSE 74; RESP 18; TEMP 97.7; O2SAT 96
== END 2023-12-12 17:29 | disposition home or self-care (01) | DRG 383 ==
LOC: ER 10:34 → ED HOLD 15:15 → EDBEDREQ 12-10 07:04 → PCU 3S 12-10 07:54
PROVIDERS: ADMIT Internal Medicine; ATTEND Internal Medicine
PROC: 0JDN3ZZ Extraction of Right Lower Leg Subcutaneous Tissue and Fascia, Percutaneous Approach (ICD-10-PCS; principal; 2023-12-11)
DX: L03.115 Cellulitis of right lower limb (principal); I87.2 Venous insufficiency (chronic) (peripheral); F17.290 Nicotine dependence, other tobacco product, uncomplicated; G47.00 Insomnia, unspecified; G62.9 Polyneuropathy, unspecified; I10 Essential (primary) hypertension; J45.909 Unspecified asthma, uncomplicated; Z79.899 Other long term (current) drug therapy; Z82.3 Family history of stroke; Z88.8 Allergy status to other drugs, medicaments and biological substances; Z90.49 Acquired absence of other specified parts of digestive tract; Z82.49 Family history of ischemic heart disease and other diseases of the circulatory system
CPT/HCPCS: 36415; 71045; 80048; 80202; 81001; 81025; 83605; 83735; 84145; 85025; 87040; 87081; 90732; 93005; 94640; 94760; 99291; A6196; A6223; A6253; A6446; A6449; G0378; J0360; J0692; J1170; J2270; J2405; J3370; J3490; J7040; J7050

== ENCOUNTER 2024-03-10 09:36 | Inpatient (IN) | payer MEDICAID ==
[~2024-03-10] VITALS: Ht 162.6 cm; Wt 121.0 kg
[~2024-03-10 09:36] MED LIST changes: -BACI28.42 TOP; +CIPR-202 PO; -CIPR-259 PO; +SULF1TAB49 PO
[2024-03-10 11:38] LABS: BASOPHILS # (AUTO) 0.1 X10'3 (0-0.2); BASOPHILS % (AUTO) 0.8 % (0-1); EOSINOPHILS # (AUTO) 0.3 X10'3 (0-0.9); EOSINOPHILS % (AUTO) 3.7 % (0-6); HEMATOCRIT 36.7 % (35.0-45.0); HEMOGLOBIN 12.6 g/dl (12.0-16.0); LYMPHOCYTES # (AUTO) 2.5 X10'3 (1.1-4.8); LYMPHOCYTES % (AUTO) 28.2 % (21-51); MEAN CORPUSCULAR HEMOGLOBIN 31.9 PG (27.0-31.0); MEAN CORPUSCULAR HGB CONC 34.3 g/dL (33.0-36.5); MEAN PLATELET VOLUME 8.6 FL (7.4-10.4); MONOCYTES # (AUTO) 0.5 X10'3 (0-0.9); MONOCYTES % (AUTO) 5.3 % (2-12); NEUTROPHILS # (AUTO) 5.5 X10'3 (1.8-7.7); PLATELET COUNT 271 X10'3 (140-440); RED BLOOD COUNT 3.95 X10'6 (4.20-5.60); RED CELL DISTRIBUTION WIDTH 13.5 % (11.5-14.5); WHITE BLOOD COUNT 8.9 X10'3 (4.5-11.0)
[2024-03-10 11:48] LABS: APTT 24 SECONDS (22-32); PROTHROMBIN TIME 10.3 SECONDS (9.0-12.0)
[2024-03-10 11:53] LABS: ALANINE AMINOTRANSFERASE 29 U/L (12-78); ALBUMIN 3.8 G/DL (3.4-5.0); ALKALINE PHOSPHATASE 97 IU/L (46-116); ANION GAP 10 (8-16); ASPARTATE AMINO TRANSFERASE 36 U/L (10-37); BILIRUBIN,TOTAL 0.4 MG/DL (0.1-1.0); BLOOD UREA NITROGEN 20 MG/DL (7-18); C-REACTIVE PROTEIN 2.96 MG/DL (0.0-0.5); CALCIUM 8.6 MG/DL (8.5-10.1); CHLORIDE 103 MMOL/L (99-107); CREATININE 1.05 MG/DL (0.40-0.90); GLUCOSE 199 MG/DL (70-104); POTASSIUM 3.9 MMOL/L (3.5-5.1); SODIUM 137 MMOL/L (135-145); TOTAL PROTEIN 7.8 G/DL (6.4-8.2); eCRCL 53 ML/MIN; eGFR 55 ML/MIN
[2024-03-10] MEDS: MEROPENEM 1GM/NS 100ML IVPB 100 ML IV STA (16:45)
[2024-03-10] MEDS: ondansetron/PF 4mg/2ml inj IV ONE (17:38)
[2024-03-10] MEDS: morphine 4 MG/ML inj SYRINge IV ONE (17:39)
[2024-03-10] MEDS ORDERED: magnesium Cl slow-release 64mg tablet PO PRN (17:45)
[2024-03-10] MEDS ORDERED: potassium Cl 20 mEq SR tablet PO PRN ×2 (17:45)
[2024-03-10] MEDS ORDERED: magnesium 4gm in 100ml NS 100 ML IV PRN (17:45)
[2024-03-10] MEDS ORDERED: acetaminophen 325mg tablet PO PRN (17:45)
[2024-03-10] MEDS ORDERED: magnesium 2GM in 50ml NS 50 ML IV PRN (17:45)
[2024-03-10] MEDS ORDERED: potassium Cl 40MEQ/1/2NS 520ml 520 ML IV PRN (17:45)
[2024-03-10] MEDS ORDERED: morphine 2 MG/ML inj. syringe IV PRN (17:45)
[2024-03-10] MEDS ORDERED: ALPRAZolam 0.25mg tablet PO PRN (19:10)
[2024-03-10] MEDS: normal saline 1000ml 1,000 ML IV SCH (19:29)
[2024-03-10] MEDS: morphine 2 MG/ML inj. syringe IV PRN (19:35)
[2024-03-10] MEDS: ondansetron/PF 4mg/2ml inj IV PRN (19:35)
[2024-03-10] MEDS: nicotine 14mg patch - 24hr TD SCH (19:45)
[2024-03-10] MEDS: ALPRAZolam 0.5mg tablet PO PRN (19:45)
[2024-03-10] MEDS: heparin, porcine 5000 units/ml vial SQ SCH (20:00)
[2024-03-10] MEDS ORDERED: doxycycline inj 100 MG in normal saline 100ml IV soln 100 ML IV SCH (20:00)
[2024-03-10] MEDS: rifaximin 550mg tablet PO SCH (20:00)
[2024-03-10 20:11] LABS: BILIRUBIN,URINE NEGATIVE (Neg); CLARITY,URINE SLIGHTLY CLOUDY (Clear); COLOR,URINE YELLOW (Yellow); GLUCOSE, URINE NEGATIVE (Neg); KETONES,URINE NEGATIVE (Neg); LEUKOCYTE ESTERASE ,URINE NEGATIVE (Neg); NITRITES, URINE NEGATIVE (Neg); OCCULT BLOOD,URINE NEGATIVE (Neg); PH,URINE 5.5 (4.8-8.0); PROTEIN,URINE NEGATIVE (Neg); UROBILINOGEN,URINE 0.2 E.U/dL (0.2-1.0)
[2024-03-10 20:25] LABS: UA COLLECTION TYPE CLN CATCH MIDSTREAM
[2024-03-10 20:30] LABS: HYALINE CASTS 0-3 /LPF (NEGATIVE); SQUAMOUS EPITHELIAL CELL,UR MODERATE /LPF (FEW)
[2024-03-10 20:31] LABS: BACTERIA,URINE FEW /HPF (Neg); MUCUS STRANDS FEW /LPF (Neg); RBC,URINE 0-2 /HPF (0-2); WBC,URINE 0-4 /HPF (0-4)
[2024-03-10 21:45] VITALS: BP 158/97; PULSE 67; RESP 16; TEMP 97.7; O2SAT 97
[2024-03-10] MEDS: HYDROmorphone inj. 0.5 MG/0.5 ML DISP.SYRIN IV ONE (22:58)
[2024-03-10] MEDS ORDERED: NAPR-996 PO (23:39)
[2024-03-11] VITALS (7 sets, daily range): BP systolic 126–165; BP diastolic 61–96; PULSE 67–80; RESP 16–20; TEMP 97.7–98.8; O2SAT 95–99
[2024-03-11] MEDS: MEROPENEM 1GM/NS 100ML IVPB 100 ML IV SCH (00:10)
[2024-03-11] MEDS: QUEtiapine 25mg tablet PO PRN (01:17)
[2024-03-11] MEDS: LIDOcaine 2% jelly 6ml syringe ***for topical use only MM ONE (08:15)
[2024-03-11] MEDS: HYDROmorphone inj. 0.5 MG/0.5 ML DISP.SYRIN IV ONE (08:55)
[2024-03-11 14:58] LABS: BASOPHILS % (AUTO) 0.6 % (0-1); EOSINOPHILS # (AUTO) 0.3 X10'3 (0-0.9); HEMATOCRIT 35.7 % (35.0-45.0); LYMPHOCYTES # (AUTO) 1.9 X10'3 (1.1-4.8); LYMPHOCYTES % (AUTO) 21.8 % (21-51); MEAN CORPUSCULAR HEMOGLOBIN 31.3 PG (27.0-31.0); MEAN CORPUSCULAR HGB CONC 33.7 g/dL (33.0-36.5); MEAN CORPUSCULAR VOLUME 92.9 FL (78-98); MEAN PLATELET VOLUME 8.8 FL (7.4-10.4); MONOCYTES # (AUTO) 0.6 X10'3 (0-0.9); MONOCYTES % (AUTO) 7.3 % (2-12); NEUTROPHILS # (AUTO) 5.7 X10'3 (1.8-7.7); NEUTROPHILS % (AUTO) 66.3 % (42-75); PLATELET COUNT 252 X10'3 (140-440); RED BLOOD COUNT 3.84 X10'6 (4.20-5.60); RED CELL DISTRIBUTION WIDTH 13.4 % (11.5-14.5); WHITE BLOOD COUNT 8.5 X10'3 (4.5-11.0)
[2024-03-11 15:11] LABS: ALANINE AMINOTRANSFERASE 35 U/L (12-78); ALBUMIN 3.3 G/DL (3.4-5.0); ALBUMIN/GLOBULIN RATIO 0.8 (1.1-1.5); ALKALINE PHOSPHATASE 98 IU/L (46-116); ANION GAP 10 (8-16); ASPARTATE AMINO TRANSFERASE 34 U/L (10-37); BILIRUBIN,TOTAL 0.3 MG/DL (0.1-1.0); BLOOD UREA NITROGEN 19 MG/DL (7-18); BUN/CREATININE RATIO 21.1 (10.0-20.0); CALCIUM 8.5 MG/DL (8.5-10.1); CHLORIDE 104 MMOL/L (99-107); GLUCOSE 181 MG/DL (70-104); POTASSIUM 3.8 MMOL/L (3.5-5.1); SODIUM 138 MMOL/L (135-145); TOTAL CARBON DIOXIDE 24.2 MMOL/L (24-32); TOTAL PROTEIN 7.2 G/DL (6.4-8.2); eCRCL 62 ML/MIN; eGFR 65 ML/MIN
[2024-03-11] MEDS: vancomycin/NS 1 GM ADD-VANTAGE 250 ML X 1 DOSE IV SCH (17:36)
[2024-03-11] MEDS: HYDROcodone/acetaminophen 5mg/325mg tablet PO PRN (19:39)
[2024-03-12] MEDS: diphenhydrAMINE 50 mg/ml inj IM ONE (02:04)
[2024-03-12] MEDS: HYDROmorphone/PF 0.2 MG/ML SYRINGE IV PRN (02:17)
[2024-03-12] MEDS: diphenhydrAMINE 50 mg/ml inj IV PRN (05:34)
[2024-03-12] MEDS: vancomycin/NS 1 GM ADD-VANTAGE 250 ML X 1 DOSE IV SCH (06:14)
[2024-03-12 06:39] VITALS: BP 160/88; PULSE 89; RESP 18; TEMP 98.2; O2SAT 96
[2024-03-12 07:45] VITALS: RESP 18; O2SAT 96
[2024-03-12 08:53] LABS: BASOPHILS % (AUTO) 0.4 % (0-1); EOSINOPHILS # (AUTO) 0.3 X10'3 (0-0.9); EOSINOPHILS % (AUTO) 5.5 % (0-6); HEMATOCRIT 35.3 % (35.0-45.0); HEMOGLOBIN 12.3 g/dl (12.0-16.0); LYMPHOCYTES # (AUTO) 1.2 X10'3 (1.1-4.8); LYMPHOCYTES % (AUTO) 20.4 % (21-51); MEAN CORPUSCULAR HGB CONC 34.9 g/dL (33.0-36.5); MEAN CORPUSCULAR VOLUME 91.8 FL (78-98); MEAN PLATELET VOLUME 8.4 FL (7.4-10.4); MONOCYTES # (AUTO) 0.3 X10'3 (0-0.9); NEUTROPHILS # (AUTO) 4.1 X10'3 (1.8-7.7); NEUTROPHILS % (AUTO) 68.7 % (42-75); PLATELET COUNT 233 X10'3 (140-440); RED BLOOD COUNT 3.84 X10'6 (4.20-5.60); RED CELL DISTRIBUTION WIDTH 13.4 % (11.5-14.5)
[2024-03-12 09:27] LABS: ALANINE AMINOTRANSFERASE 40 U/L (12-78); ALBUMIN 3.2 G/DL (3.4-5.0); ALBUMIN/GLOBULIN RATIO 0.8 (1.1-1.5); ALKALINE PHOSPHATASE 98 IU/L (46-116); ANION GAP 5 (8-16); ASPARTATE AMINO TRANSFERASE 38 U/L (10-37); BILIRUBIN,TOTAL 0.5 MG/DL (0.1-1.0); BLOOD UREA NITROGEN 12 MG/DL (7-18); BUN/CREATININE RATIO 15.6 (10.0-20.0); CALCIUM 8.5 MG/DL (8.5-10.1); CHLORIDE 108 MMOL/L (99-107); CREATININE 0.77 MG/DL (0.40-0.90); GLUCOSE 165 MG/DL (70-104); POTASSIUM 3.9 MMOL/L (3.5-5.1); SODIUM 139 MMOL/L (135-145); TOTAL CARBON DIOXIDE 26.2 MMOL/L (24-32); TOTAL PROTEIN 7.1 G/DL (6.4-8.2); eCRCL 72 ML/MIN; eGFR 78 ML/MIN
[2024-03-12 13:14] VITALS: BP 163/93; PULSE 82; RESP 20; TEMP 98.2; O2SAT 97
[2024-03-12] MEDS ORDERED: albuterol 2.5 MG/3 ML nebule NEB PRN (13:40)
[2024-03-12] MEDS: lisinopril 20mg tablet PO ONE (14:22)
[2024-03-12] MEDS ORDERED: VANCOMYCIN LEVEL IV ONE (15:30)
[2024-03-12] MEDS: gabapentin 400mg capsule PO SCH (15:55)
[2024-03-12] MEDS: JUVEN Shake w/Arg/Glut/Ca2+Bmb (Juven 19.3gm) pkt 240ml PO SCH (17:30)
[2024-03-12 18:00] VITALS: BP 165/84; PULSE 77; RESP 20; TEMP 97.9; O2SAT 96
[2024-03-12] MEDS: metoprolol succinate 25mg (24-HOUR) SR. Tablet PO SCH (19:45)
[2024-03-12 20:00] VITALS: RESP 18; O2SAT 96
[2024-03-12] MEDS: VANCOMYCIN LEVEL IV ONE (21:30)
[2024-03-12 22:00] VITALS: BP 152/90; PULSE 72; RESP 16; TEMP 97.7; O2SAT 94
[2024-03-13] MEDS: traZODone 50mg tablet PO PRN (01:51)
[2024-03-13 06:19] VITALS: BP 135/83; PULSE 74; RESP 14; TEMP 97.8; O2SAT 96
[2024-03-13 07:27] LABS: BASOPHILS % (AUTO) 0.5 % (0-1); EOSINOPHILS # (AUTO) 0.4 X10'3 (0-0.9); EOSINOPHILS % (AUTO) 7.2 % (0-6); HEMATOCRIT 33.3 % (35.0-45.0); HEMOGLOBIN 11.6 g/dl (12.0-16.0); LYMPHOCYTES # (AUTO) 1.7 X10'3 (1.1-4.8); LYMPHOCYTES % (AUTO) 34.8 % (21-51); MEAN CORPUSCULAR HGB CONC 34.7 g/dL (33.0-36.5); MEAN CORPUSCULAR VOLUME 92.4 FL (78-98); MEAN PLATELET VOLUME 8.5 FL (7.4-10.4); MONOCYTES # (AUTO) 0.3 X10'3 (0-0.9); MONOCYTES % (AUTO) 6.3 % (2-12); NEUTROPHILS # (AUTO) 2.5 X10'3 (1.8-7.7); NEUTROPHILS % (AUTO) 51.2 % (42-75); PLATELET COUNT 232 X10'3 (140-440); RED BLOOD COUNT 3.61 X10'6 (4.20-5.60); RED CELL DISTRIBUTION WIDTH 13.4 % (11.5-14.5); WHITE BLOOD COUNT 4.9 X10'3 (4.5-11.0)
[2024-03-13] MEDS: ertapenem sod inj 1 GM in normal saline 100ml IV soln 100 ML IV SCH (07:28)
[2024-03-13] MEDS: lisinopril 20mg tablet PO SCH (07:29)
[2024-03-13 07:51] LABS: ALANINE AMINOTRANSFERASE 42 U/L (12-78); ALBUMIN/GLOBULIN RATIO 0.8 (1.1-1.5); ALKALINE PHOSPHATASE 95 IU/L (46-116); ANION GAP 8 (8-16); ASPARTATE AMINO TRANSFERASE 35 U/L (10-37); BILIRUBIN,TOTAL 0.5 MG/DL (0.1-1.0); BLOOD UREA NITROGEN 9 MG/DL (7-18); BUN/CREATININE RATIO 12.3 (10.0-20.0); CALCIUM 8.1 MG/DL (8.5-10.1); CHLORIDE 109 MMOL/L (99-107); CREATININE 0.73 MG/DL (0.40-0.90); GLUCOSE 204 MG/DL (70-104); POTASSIUM 3.8 MMOL/L (3.5-5.1); SODIUM 141 MMOL/L (135-145); TOTAL CARBON DIOXIDE 24.1 MMOL/L (24-32); TOTAL PROTEIN 6.7 G/DL (6.4-8.2); eCRCL 76 ML/MIN; eGFR 83 ML/MIN
[2024-03-13] MEDS ORDERED: non-formulary drug (Metoprolol Succinate* (Toprol Xl*) 1 TAB) PO SCH (08:00)
[2024-03-13] MEDS: sennosides/docusate sodium tablet PO SCH (09:45)
[2024-03-13] MEDS ORDERED: SENN-283 PO (10:01)
[2024-03-13] MEDS ORDERED: NICO-631 TD (10:01)
[2024-03-13 10:52] VITALS: BP 148/70; PULSE 76; RESP 18; TEMP 98.2; O2SAT 96
[2024-03-13 18:00] VITALS: BP 138/76; PULSE 78; RESP 18; TEMP 98.1; O2SAT 97
[2024-03-13 20:00] VITALS: RESP 18; O2SAT 94
[2024-03-13] MEDS: benzocaine (Anbesol) 12ml bottle MM SCH (21:26)
[2024-03-13 22:00] VITALS: BP 136/72; PULSE 74; RESP 17; TEMP 98.3; O2SAT 96
[2024-03-14 02:00] VITALS: BP 139/78; PULSE 71; RESP 14; TEMP 98.3; O2SAT 97
[2024-03-14 06:00] VITALS: BP 202/109; PULSE 73; RESP 20; TEMP 98; O2SAT 98
[2024-03-14 06:57] LABS: BASOPHILS % (AUTO) 0.6 % (0-1); EOSINOPHILS # (AUTO) 0.3 X10'3 (0-0.9); EOSINOPHILS % (AUTO) 5.6 % (0-6); HEMATOCRIT 33.7 % (35.0-45.0); HEMOGLOBIN 11.6 g/dl (12.0-16.0); LYMPHOCYTES # (AUTO) 1.9 X10'3 (1.1-4.8); LYMPHOCYTES % (AUTO) 34.5 % (21-51); MEAN CORPUSCULAR HEMOGLOBIN 31.8 PG (27.0-31.0); MEAN CORPUSCULAR HGB CONC 34.4 g/dL (33.0-36.5); MEAN CORPUSCULAR VOLUME 92.5 FL (78-98); MEAN PLATELET VOLUME 8.9 FL (7.4-10.4); MONOCYTES # (AUTO) 0.3 X10'3 (0-0.9); MONOCYTES % (AUTO) 6.1 % (2-12); NEUTROPHILS % (AUTO) 53.2 % (42-75); PLATELET COUNT 236 X10'3 (140-440); RED BLOOD COUNT 3.64 X10'6 (4.20-5.60); RED CELL DISTRIBUTION WIDTH 13.3 % (11.5-14.5); WHITE BLOOD COUNT 5.6 X10'3 (4.5-11.0)
[2024-03-14 07:16] LABS: ALANINE AMINOTRANSFERASE 38 U/L (12-78); ALBUMIN 3.1 G/DL (3.4-5.0); ALBUMIN/GLOBULIN RATIO 0.8 (1.1-1.5); ALKALINE PHOSPHATASE 93 IU/L (46-116); ANION GAP 10 (8-16); ASPARTATE AMINO TRANSFERASE 37 U/L (10-37); BILIRUBIN,TOTAL 0.3 MG/DL (0.1-1.0); BLOOD UREA NITROGEN 8 MG/DL (7-18); BUN/CREATININE RATIO 12.3 (10.0-20.0); CALCIUM 8.6 MG/DL (8.5-10.1); CHLORIDE 106 MMOL/L (99-107); CREATININE 0.65 MG/DL (0.40-0.90); GLUCOSE 119 MG/DL (70-104); POTASSIUM 3.6 MMOL/L (3.5-5.1); SODIUM 140 MMOL/L (135-145); TOTAL CARBON DIOXIDE 24.3 MMOL/L (24-32); TOTAL PROTEIN 6.9 G/DL (6.4-8.2); eCRCL 85 ML/MIN; eGFR > 90 ML/MIN
[2024-03-14 08:00] VITALS: RESP 20; O2SAT 98
[2024-03-14 14:34] VITALS: BP 198/99; PULSE 80; RESP 18; TEMP 98.5; O2SAT 97
[2024-03-14] MEDS: HYDROcodone/acetaminophen 10/325mg tab PO PRN (16:18)
[2024-03-14 18:00] VITALS: BP 163/85; PULSE 67; RESP 17; TEMP 98.3; O2SAT 94
[2024-03-14 22:00] VITALS: BP 147/92; PULSE 73; RESP 16; TEMP 98.1; O2SAT 96
[2024-03-15] VITALS (8 sets, daily range): BP systolic 138–202; BP diastolic 59–97; PULSE 69–86; RESP 16–22; TEMP 96.8–98.7; O2SAT 96–97
[2024-03-15 06:06] LABS: BASOPHILS % (AUTO) 0.6 % (0-1); EOSINOPHILS # (AUTO) 0.2 X10'3 (0-0.9); EOSINOPHILS % (AUTO) 4.5 % (0-6); HEMATOCRIT 33.3 % (35.0-45.0); HEMOGLOBIN 11.4 g/dl (12.0-16.0); LYMPHOCYTES # (AUTO) 1.8 X10'3 (1.1-4.8); LYMPHOCYTES % (AUTO) 35.3 % (21-51); MEAN CORPUSCULAR HEMOGLOBIN 31.6 PG (27.0-31.0); MEAN CORPUSCULAR HGB CONC 34.4 g/dL (33.0-36.5); MEAN CORPUSCULAR VOLUME 92.1 FL (78-98); MEAN PLATELET VOLUME 8.8 FL (7.4-10.4); MONOCYTES # (AUTO) 0.4 X10'3 (0-0.9); NEUTROPHILS # (AUTO) 2.6 X10'3 (1.8-7.7); NEUTROPHILS % (AUTO) 51.6 % (42-75); PLATELET COUNT 249 X10'3 (140-440); RED BLOOD COUNT 3.61 X10'6 (4.20-5.60); RED CELL DISTRIBUTION WIDTH 13.4 % (11.5-14.5); WHITE BLOOD COUNT 5.1 X10'3 (4.5-11.0)
[2024-03-15 06:27] LABS: ALANINE AMINOTRANSFERASE 36 U/L (12-78); ALBUMIN 3.1 G/DL (3.4-5.0); ALBUMIN/GLOBULIN RATIO 0.8 (1.1-1.5); ALKALINE PHOSPHATASE 94 IU/L (46-116); ANION GAP 9 (8-16); ASPARTATE AMINO TRANSFERASE 29 U/L (10-37); BILIRUBIN,TOTAL 0.3 MG/DL (0.1-1.0); BLOOD UREA NITROGEN 9 MG/DL (7-18); BUN/CREATININE RATIO 15.8 (10.0-20.0); CALCIUM 8.4 MG/DL (8.5-10.1); CHLORIDE 105 MMOL/L (99-107); CREATININE 0.57 MG/DL (0.40-0.90); GLUCOSE 135 MG/DL (70-104); POTASSIUM 3.4 MMOL/L (3.5-5.1); SODIUM 139 MMOL/L (135-145); TOTAL CARBON DIOXIDE 25.5 MMOL/L (24-32); eCRCL 97 ML/MIN; eGFR > 90 ML/MIN
[2024-03-15 11:18] LABS: HEMOGLOBIN A1C 7.3 % (4.5-6.2)
[2024-03-15] MEDS ORDERED: glucagon, human recombinant 1mg kit SUBCUT PRN (11:45)
[2024-03-15] MEDS ORDERED: dextrose 50%-water 50ml dispensing syringe IV PRN ×2 (11:45)
[2024-03-15] MEDS ORDERED: DEXTROSE 15 GM of carb/4 tabs (each vial/BOTTLE has 4 tablets) PO PRN ×2 (11:45)
[2024-03-15] MEDS: INSULIN LISPRO 100 UNIT/ML INSULN.PEN MULTI-DOSE SQ SCH ×2 (13:00→14:03)
[2024-03-15] MEDS: potassium Cl 20 mEq SR tablet PO STA (17:21)
[2024-03-15] MEDS: HYDROchlorothiazide 25mg tablet PO SCH (19:42)
[2024-03-15] MEDS: hyDRALAzine 10mg tablet PO PRN (19:42)
[2024-03-15] MEDS: nystatin 500,000 unit/5ML UD oral suspension PO SCH (21:47)
[2024-03-15] MEDS: insulin glargine (Lantus) pen - multi-dose SQ SCH (22:08)
[2024-03-16 05:00] VITALS: O2SAT 97
[2024-03-16 05:53] LABS: BASOPHILS # (AUTO) 0.1 X10'3 (0-0.2); BASOPHILS % (AUTO) 0.8 % (0-1); EOSINOPHILS # (AUTO) 0.3 X10'3 (0-0.9); EOSINOPHILS % (AUTO) 4.3 % (0-6); HEMATOCRIT 33.4 % (35.0-45.0); HEMOGLOBIN 11.6 g/dl (12.0-16.0); LYMPHOCYTES # (AUTO) 1.9 X10'3 (1.1-4.8); LYMPHOCYTES % (AUTO) 31.6 % (21-51); MEAN CORPUSCULAR HEMOGLOBIN 31.9 PG (27.0-31.0); MEAN CORPUSCULAR HGB CONC 34.7 g/dL (33.0-36.5); MEAN PLATELET VOLUME 8.3 FL (7.4-10.4); MONOCYTES # (AUTO) 0.5 X10'3 (0-0.9); MONOCYTES % (AUTO) 7.6 % (2-12); NEUTROPHILS # (AUTO) 3.3 X10'3 (1.8-7.7); NEUTROPHILS % (AUTO) 55.7 % (42-75); PLATELET COUNT 240 X10'3 (140-440); RED BLOOD COUNT 3.63 X10'6 (4.20-5.60); RED CELL DISTRIBUTION WIDTH 13.6 % (11.5-14.5)
[2024-03-16 06:00] VITALS: BP_SYST 175; BP_SYST 190; BP_DIAS 102; BP_DIAS 116; PULSE 87; RESP 16; TEMP 98.7; O2SAT 94
[2024-03-16 06:10] LABS: ALANINE AMINOTRANSFERASE 34 U/L (12-78); ALBUMIN/GLOBULIN RATIO 0.8 (1.1-1.5); ALKALINE PHOSPHATASE 93 IU/L (46-116); ANION GAP 9 (8-16); ASPARTATE AMINO TRANSFERASE 27 U/L (10-37); BILIRUBIN,TOTAL 0.3 MG/DL (0.1-1.0); BLOOD UREA NITROGEN 9 MG/DL (7-18); CHLORIDE 105 MMOL/L (99-107); CREATININE 0.69 MG/DL (0.40-0.90); GLUCOSE 151 MG/DL (70-104); POTASSIUM 3.4 MMOL/L (3.5-5.1); SODIUM 140 MMOL/L (135-145); TOTAL CARBON DIOXIDE 25.7 MMOL/L (24-32); TOTAL PROTEIN 6.8 G/DL (6.4-8.2); eCRCL 80 ML/MIN; eGFR 89 ML/MIN
[2024-03-16 12:00] VITALS: BP 179/91; PULSE 74; RESP 16; TEMP 98.7; O2SAT 97
[2024-03-16] MEDS ORDERED: magnesium 4gm in 100ml NS 100 ML IV PRN (14:15)
[2024-03-16] MEDS ORDERED: potassium Cl 40MEQ/1/2NS 520ml 520 ML IV PRN (14:15)
[2024-03-16] MEDS ORDERED: magnesium Cl slow-release 64mg tablet PO PRN (14:15)
[2024-03-16] MEDS ORDERED: magnesium 2GM in 50ml NS 50 ML IV PRN (14:15)
[2024-03-16] MEDS ORDERED: potassium Cl 20 mEq SR tablet PO PRN ×2 (14:15)
[2024-03-16] MEDS: hydrALAZINE 20mg/ml inj. IV PRN (14:41)
[2024-03-16 19:00] VITALS: BP 148/59; PULSE 75; RESP 18; TEMP 97.8; O2SAT 96
[2024-03-16 20:00] VITALS: RESP 20; O2SAT 96
[2024-03-16 22:30] VITALS: BP 151/86; PULSE 86; RESP 18; TEMP 96.9; O2SAT 96
[2024-03-17 04:07] VITALS: O2SAT 96
[2024-03-17 06:00] VITALS: BP 138/63; PULSE 64; RESP 16; TEMP 97.3; O2SAT 95
[2024-03-17] MEDS: metoprolol succinate 25mg (24-HOUR) SR. Tablet PO SCH (08:58)
[2024-03-17 11:00] VITALS: BP 126/70; PULSE 75; RESP 18; TEMP 98.7; O2SAT 95
[2024-03-17 11:35] LABS: BASOPHILS % (AUTO) 0.8 % (0-1); EOSINOPHILS # (AUTO) 0.2 X10'3 (0-0.9); EOSINOPHILS % (AUTO) 3.7 % (0-6); HEMATOCRIT 32.7 % (35.0-45.0); HEMOGLOBIN 11.2 g/dl (12.0-16.0); LYMPHOCYTES # (AUTO) 1.7 X10'3 (1.1-4.8); LYMPHOCYTES % (AUTO) 30.2 % (21-51); MEAN CORPUSCULAR HEMOGLOBIN 31.5 PG (27.0-31.0); MEAN CORPUSCULAR HGB CONC 34.3 g/dL (33.0-36.5); MEAN CORPUSCULAR VOLUME 91.8 FL (78-98); MEAN PLATELET VOLUME 8.3 FL (7.4-10.4); MONOCYTES # (AUTO) 0.4 X10'3 (0-0.9); MONOCYTES % (AUTO) 6.9 % (2-12); NEUTROPHILS # (AUTO) 3.3 X10'3 (1.8-7.7); NEUTROPHILS % (AUTO) 58.4 % (42-75); PLATELET COUNT 244 X10'3 (140-440); RED BLOOD COUNT 3.56 X10'6 (4.20-5.60); RED CELL DISTRIBUTION WIDTH 13.5 % (11.5-14.5); WHITE BLOOD COUNT 5.7 X10'3 (4.5-11.0)
[2024-03-17 11:48] LABS: ALANINE AMINOTRANSFERASE 39 U/L (12-78); ALBUMIN/GLOBULIN RATIO 0.8 (1.1-1.5); ALKALINE PHOSPHATASE 94 IU/L (46-116); ANION GAP 8 (8-16); ASPARTATE AMINO TRANSFERASE 44 U/L (10-37); BILIRUBIN,TOTAL 0.2 MG/DL (0.1-1.0); BLOOD UREA NITROGEN 10 MG/DL (7-18); BUN/CREATININE RATIO 12.5 (10.0-20.0); CALCIUM 8.8 MG/DL (8.5-10.1); CHLORIDE 102 MMOL/L (99-107); GLUCOSE 116 MG/DL (70-104); POTASSIUM 3.6 MMOL/L (3.5-5.1); SODIUM 139 MMOL/L (135-145); TOTAL PROTEIN 6.9 G/DL (6.4-8.2); eCRCL 69 ML/MIN; eGFR 75 ML/MIN
[2024-03-17 11:52] VITALS: RESP 16
[2024-03-17] MEDS ORDERED: METF-1203 PO (19:28)
[2024-03-18] MEDS ORDERED: MESSAGE TO NURSING IV ONE (05:30)
== END 2024-03-17 14:15 | disposition home health service (06) | DRG 383 ==
LOC: ER 09:36 → UNDOADMIN 17:45 → ED HOLD 17:45 → SUR 3N 21:40 → ED HOLD 21:40
PROVIDERS: ADMIT Internal Medicine; ATTEND Internal Medicine
PROC: 05HB33Z Insertion of Infusion Device into Right Basilic Vein, Percutaneous Approach (ICD-10-PCS; principal; 2024-03-17)
PROC: B54MZZA Ultrasonography of Right Upper Extremity Veins, Guidance (ICD-10-PCS; 2024-03-17)
DX: L03.115 Cellulitis of right lower limb (principal); E11.42 Type 2 diabetes mellitus with diabetic polyneuropathy; S91.001A Unspecified open wound, right ankle, initial encounter; B96.1 Klebsiella pneumoniae [K. pneumoniae] as the cause of diseases classified elsewhere; B95.62 Methicillin resistant Staphylococcus aureus infection as the cause of diseases classified elsewhere; E66.01 Morbid (severe) obesity due to excess calories; F41.9 Anxiety disorder, unspecified; I10 Essential (primary) hypertension; G89.29 Other chronic pain; M25.562 Pain in left knee; M25.561 Pain in right knee; G47.00 Insomnia, unspecified; K12.0 Recurrent oral aphthae; J45.909 Unspecified asthma, uncomplicated; I87.2 Venous insufficiency (chronic) (peripheral); Z16.12 Extended spectrum beta lactamase (ESBL) resistance; X58.XXXA Exposure to other specified factors, initial encounter; T40.2X5A Adverse effect of other opioids, initial encounter; Y92.238 Other place in hospital as the place of occurrence of the external cause; Z68.42 Body mass index [BMI] 45.0-49.9, adult; Z88.6 Allergy status to analgesic agent; Z90.49 Acquired absence of other specified parts of digestive tract; Z82.49 Family history of ischemic heart disease and other diseases of the circulatory system; Z82.3 Family history of stroke; Y93.89 Activity, other specified; Y92.89 Other specified places as the place of occurrence of the external cause; Y99.8 Other external cause status; Z79.899 Other long term (current) drug therapy; Z22.322 Carrier or suspected carrier of Methicillin resistant Staphylococcus aureus; Z88.5 Allergy status to narcotic agent; Z90.13 Acquired absence of bilateral breasts and nipples; Z79.84 Long term (current) use of oral hypoglycemic drugs; Z76.5 Malingerer [conscious simulation]
CPT/HCPCS: 36410; 36415; 73700; 73718; 76942; 80053; 80202; 81001; 82948; 83036; 83605; 84145; 85025; 85610; 85651; 85730; 86140; 87040; 87081; 93005; 96365; 96375; 97161; 97530; 99291; A6196; A6212; A6253; A6258; A6446; A6449; C1751; G0378; J0360; J1170; J1200; J1335; J1644; J1815; J2185; J2270; J2405; J3370; J3490; J7030

== ENCOUNTER → 2024-03-22 | Emergency (ER) | payer MEDICAID ==
[~2024-03-22] MED LIST changes: -CIPR-202 PO; +METF-1203 PO; +NAPR-996 PO; +NICO-631 TD; +SENN-283 PO; -SULF1TAB49 PO
== END | disposition left against medical advice (07) ==
LOC: ER 01:17
DX: Z00.00 Encounter for general adult medical examination without abnormal findings (principal); Z53.21 Procedure and treatment not carried out due to patient leaving prior to being seen by health care provider

== ENCOUNTER 2024-03-23 13:43 | Emergency (ER) | payer MEDICAID ==
[~2024-03-23] VITALS: Ht 162.6 cm; Wt 126.4 kg
[2024-03-23 14:05] VITALS: BP 150/78; PULSE 72; RESP 16; TEMP 97.8; O2SAT 98
== END 2024-03-23 17:02 | disposition home or self-care (01) ==
LOC: ER 13:44
DX: T82.524A Displacement of infusion catheter, initial encounter (principal); L03.115 Cellulitis of right lower limb; I10 Essential (primary) hypertension; J45.909 Unspecified asthma, uncomplicated; Z88.5 Allergy status to narcotic agent; Z88.8 Allergy status to other drugs, medicaments and biological substances; Z90.49 Acquired absence of other specified parts of digestive tract; Z98.890 Other specified postprocedural states
CPT/HCPCS: 99283

== ENCOUNTER 2025-08-04 08:50 | Outpatient (CLI) | payer MEDICAID ==
[~2025-08-04 08:50] MED LIST changes: -LISI40TA13 PO; +LISI40TA20 PO; -METF-1203 PO; +NAPR-1168 PO; -NAPR-996 PO
[2025-08-04 09:44] VITALS: PULSE 74; RESP 16; O2SAT 93
--- NOTE | 2025-08-04 15:33 | PROCEDURE NOTE - Respiratory ---
Procedure Note-Respiratory Providers to CC Copies To 1: [place] DO Procedure Name: This is a spirometry study dated August 04, 2025. Spirometry measurements: Both the forced vital capacity and the FEV1 are in the normal range. The FEV1 ratio is normal. The flow rates are excellent. Bronchodilator was not administered as part of the study. Overall conclusion: Normal spirometry study. The patient's asthma appears to be under excellent control on current medication. We have no previous studies for comparison. It is recommended that the patient completely abstain from cigarette smoking and/or vaping. TOMAS GARVEY MD Aug 04, 2025 15:33
== END 2025-08-04 23:59 | disposition home or self-care (01) ==
LOC: RT 08:50
PROVIDERS: ATTEND Student in an Organized Health Care Education/Training Program
DX: J45.40 Moderate persistent asthma, uncomplicated (principal)
CPT/HCPCS: 94010; 94760